=== PATIENT | male | born 1965 | race Caucasian/White ===

== ENCOUNTER 2024-01-24 20:46 | Inpatient (IN) | payer MEDICARE, SELFPAY ==
[2024-01-24] VITALS (9 sets, daily range): BP systolic 120–144; BP diastolic 81–106; PULSE 78–133; RESP 15–16; O2SAT 96–100
--- NOTE | ~2024-01-24 | XR_ITS ---
CHEST RADIOGRAPH, PA AND LATERAL CLINICAL HISTORY: chest pain SOB HX AFIB, ID . COMPARISON: None available TECHNIQUE: PA and lateral views of the chest. FINDINGS Right internal jugular tunneled hemodialysis catheter identified with its tip projecting over the sup erior vena cava. The remainder of the cardiomediastinal silhouette is enlarged, but otherwise unremarkable. Blunting of the bilateral costophrenic sulci, representing small bilateral pleural effusions. Increased interstitial markings are identified bilaterally, findings suggesting mild pulmonary vascul ar congestion. The lungs are otherwise clear. IMPRESSION: Mild pulmonary vascular congestion with small bilateral pleural effusions, as detailed above. Reviewed, dictated and finalized at location A. SERVICE ADVISOR IMPRESSION: Mild pulmonary vascular congestion with small bilateral pleural effusions, as d etailed above.
--- NOTE | 2024-01-24 20:53 | ECG_ITS ---
Test Date: 2024-01-24 20:57:42 Measurements Intervals [place] Rate: 127 P: -45 SD: 217 QRS: -81 QRSD: 124 T: 61 QT: 341 QTc: 497 Interpretive Statements ECTOPIC ATRIAL TACHYCARDIA WITH FIRST DEGREE AV BLOCK ATRIAL PREMATURE COMPLEX LEFT AXIS DEVIATION RIGHT BUNDLE BRANCH BLOCK INFERIOR INFARCT, AGE INDETERMINATE ANTEROLATERAL INFARCT, AGE INDETERMINATE BORDERLINE ST-T WAVE ABNORMALITY- HIGH LATERAL LEADS BASELINE ARTIFACT- I ABNORMAL ECG No previous ECG available for comparison Electronically Signed On 01-25-2024 05:25:59 COOLING ROOM ATTENDANT by Glenn Delgadillo D.O.
[2024-01-24 21:24] LABS: Basophils Percent Auto 0.4 % (0.2-1.2); Eosinophils Absolute Auto 0.1 K/mm3 (0-0.3); Eosinophils Percent Auto 1.1 % (0-4.4); Immature Granulocyte Absolute 0.07 K/mm3 (0.00-0.031); Immature Granulocyte Percent A 0.7 % (0-0.5); Lymphocytes Absolute Auto 0.56 K/mm3 (0.9-3.2); Lymphocytes Percent Auto 5.6 % (18.3-44.2); Mean Corpuscular Volume 90.1 fl (80-100); Mean Platelet Volume 9.2 fl (7.4-10.4); Monocytes Absolute Auto 0.7 K/mm3 (0.1-0.6); Neutrophils Absolute Auto 8.5 K/mm3 (1.3-6.7); Neutrophils Percent Auto 85.2 % (45.5-73.1); Platelet Count Result 228 k/mm3 (150-375); Red Blood Count 3.22 M/mm3 (4.6-6.20); Red Cell Distribution Width 15.5 % (11.5-14.5)
[2024-01-24] MEDS: METOPROLOL TARTRATE INJ 5 MG/5 ML VIAL IV PUSH (21:35)
[2024-01-24 21:36] LABS: Alanine Aminotransferase 11 U/L (6-50); Albumin Level 3.2 g/dL (3.5-5.1); Alkaline Phosphatase 94 U/L (38-126); Anion Gap 9 mmol/L (4-12); Aspartate Amino Transferase 24 U/L (17-59); Bilirubin,Total 0.3 mg/dL (0.2-1.3); Blood Urea Nitrogen 18 mg/dL (9-20); Calcium 8.3 mg/dL (8.4-10.2); Carbon Dioxide 29 mmol/L (22-30); Chloride 98 mmol/L (98-107); Estimated CRCL calculation 23 ml/min; Estimated Glomerular Filt Rate 15; Glucose 344 mg/dL (65-110); INR 1.3; Lipase 68 U/L (23-300); Potassium 3.9 mmol/L (3.4-5.0); Prothrombin Time 16.6 Seconds (11.1-14.7); Sodium 136 mmol/L (137-145)
[2024-01-24 21:37] LABS: Partial Thromboplastin Time 37.2 Seconds (22.3-36.8)
[2024-01-24 21:49] LABS: Troponin I 0.144 ng/mL (0.000-0.034)
[2024-01-24] MEDS: LORazepam INJ (*CRX) 2 MG/ML VIAL 1 MG IV PUSH (22:38)
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
[2024-01-24] MEDS: dilTIAZem HCl INJ 25 MG/5 ML VIAL 10 MG IV PUSH (23:50)
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
[2024-01-25] VITALS (19 sets, daily range): BP systolic 104–138; BP diastolic 60–92; PULSE 71–119; RESP 12–22; TEMP 36.4–36.8; O2SAT 94–100; BMI 31.8
--- NOTE | 2024-01-25 | ECHO_ITS ---
Patient Info Name: Jeancarlos Varghese Age: 59 years : 1965 Gender: Male Ht: 72 in Wt: 234 lbs BSA: 2.35 m2 HR: 119 bpm BP: 138 / 88 mmHg Heart Rhythm: Sinus Rhythm Technical Quality: Fair Exam Date: 01/25/2024 4:33 PM Exam Location: Echo Lab Patient Status: Inpatient Admit Date: 01/25/2024 Staff Ordering Physician: Phani Méndez MD ([facility]) Senior Backup Administrator: Marko Dior RDCS Attending Provider: Casey Turcios MD Exam Type: CA echo dop color flow w con Study Info Indications I21.4 - Non-ST elevation (NSTEMI) myocardial infarction Complete two-dimensional, color flow and Doppler transthoracic echocardiogram is performed with contrast to opacify the left ventricle and to improve the deliniation of the left ventricle endocardial borders. Contrast/Agitated Saline Contrast/Ag. Saline: Definity Amount: 2.00 ml Existing IV Access: Yes IV Access Condition: patent with no signs of infiltration Summary 1. Left ventricular chamber dimension is normal. 2. Left ventricular systolic function is mildly reduced, estimated at 45-50%. 3. There is mildly increased left ventricular wall thickness. 4. The left ventricular diastolic function is grade I diastolic dysfunction. 5. Right ventricular systolic function is normal. 6. There is moderate aortic valve calcification. 7. There is mild aortic valve stenosis. 8. There is mild mitral valve regurgitation. 9. There is mild tricuspid valve regurgitation. 10. Estimated pulmonary arterial systolic pressure is 37 mmHg. Left Ventricle Left ventricular chamber dimension is normal. Left ventricular systolic function is mildly reduced, estimated at 45-50%. There is mildly increased left ventricular wall thickness. The left ventricular diastolic function is grade I diastolic dysfunction. Right Ventricle Right ventricular chamber dimension is normal. Right ventricular systolic function is normal. Left Atria Left atrial chamber dimension is normal. Right Atria Right atrial chamber dimension is normal. Atrial Septum Intact interatrial septum visualized by color flow imaging. Aortic Valve The aortic valve is probable trileaflet. There is mild aortic valve stenosis. There is no aortic valve regurgitation. There is moderate aortic valve calcification. Pulmonic Valve The pulmonic valve is not well visualized. There is no pulmonic regurgitation. Mitral Valve There is mild mitral valve regurgitation. The mitral valve annulus is mildly calcified. Tricuspid Valve There is mild tricuspid valve regurgitation. Estimated pulmonary arterial systolic pressure is 37 mmHg. Pericardium/Pleural There is no pericardial effusion. Inferior Vena Cava Normal inferior vena cava with <50% collapse upon inspiration consistent with elevated right atrial pressure, 15 mmHg. Aorta The aortic root size at the sinus of Valsalva is normal. Left Ventricular Outflow Tract Name Value Normal LVOT 2D LVOT Diameter 2.00 cm LVOT Doppler LVOT Peak Gradient 1 mmHg LVOT Mean Gradient 1 mmHg LVOT VTI 11.26 cm LVOT VTI/AV VTI Ratio 0.56 LVOT Stroke Volume 35.21 ml LVOT CO 2.43 l/min LVOT CI 1.04 L/min/m2 Pulmonic Valve Name Value Normal PV Doppler PV Peak Gradient 2 mmHg Mitral Valve Name Value Normal MV Doppler MV Decel Hernando 574.22 cm/s2 MV PHT 0 s MV Area (PHT) 4.06 cm2 4.00-5.00 MV Diastolic Function MV E Peak Velocity 107.30 cm/s MV A Peak Velocity 56.10 cm/s MV E/A 1.91 MV Decel Time 0 s Tricuspid Valve Name Value Normal TV Regurgitation Doppler TR Peak Velocity 234.34 cm/s TR Peak Gradient 21 mmHg Estimated PAP/RSVP RA Pressure 15 mmHg <=5 PA Systolic Pressure 37 mmHg <36 RV Systolic Pressure 37 mmHg <36 Aorta Name Value Normal Ascending Aorta Ao Root Diameter (MM) 2.53 cm Ao Root Diam Index (MM) 1.08 cm/m2 Aortic Valve Name Value Normal AV Doppler AV Peak Velocity 113.70 cm/s AV Peak Gradient 5 mmHg AV Mean Gradient 3 mmHg AV VTI 19.97 cm AV Area (Cont Eq VTI) 1.76 cm2 >=3.00 AV Area (Cont Eq Foster) 1.68 cm2 AV Regurgitation 2D LVOT Area 3.13 cm2 Ventricles Name Value Normal LV Dimensions 2D/MM IVS Diastolic Thickness (2D) 0.89 cm 0.60-1.00 IVS Diastole Thickness (MM) 0.94 cm 0.60-1.00 LVID Diastole (2D) 5.75 cm 4.20-5.80 LVID Diastole (MM) 6.03 cm 4.20-5.80 LVIW Diastolic Thickness (2D) 1.09 cm 0.60-1.00 LVIW Diastolic Thickness (MM) 0.81 cm 0.60-1.00 LVID Systole (2D) 3.66 cm 2.50-4.00 LVID Systole (MM) 4.35 cm 2.50-4.00 LVOT Diameter 2.00 cm LV Mass (2D Cubed) 227.00 g 88.00-224.00 LV Mass Index (2D Cubed) 0.01 g/cm2 0.00-0.01 Relative Wall Thickness (2D) 0.38 LV Mass (MM Cubed) 210.33 g 88.00-224.00 LV Mass Index (MM Cubed) 0.01 g/cm2 0.00-0.01 Relative Wall Thickness (MM) 0.27 LV Fractional Shortening/Ejection Fraction 2D/MM LV Fractional Shortening (2D) 36 % 25-43 LV Fractional Shortening (MM) 28 % 25-43 LV EF (MM Teicholz) 53 % 52-72 LV EF (2D Teicholz) 65 % 52-72 LV Diastolic Volume (4C MOD) 140.79 ml LV EF (4C MOD) 51 % LV Diastolic Volume (2C MOD) 117.38 ml LV EF (2C MOD) 43 % LV Diastolic Volume (BP MOD) 130.66 ml 62.00-150.00 LV Diastolic Volume Index (BP MOD) 0.06 l/m2 0.03-0.07 LV Systolic Volume (BP MOD) 68.29 ml 21.00-61.00 LV Systolic Volume Index (BP MOD) 0.03 l/m2 0.01-0.03 LV EF (BP MOD) 48 % 52-72 LV Diastolic Length (4C) 8.69 cm LV Systolic Length (4C) 8.15 cm LV Stroke Volume (4C MOD) 72.05 ml Atria Name Value Normal LA Dimensions LA Dimension (MM) 5.58 cm 3.00-4.10 LA Volume (4C A-L) 65.60 ml LA Volume (BP A-L) 60.00 ml RA Dimensions RA Area (4C) 15.40 cm2 <=18.00 Report Signatures
--- NOTE | 2024-01-25 00:08 | ED.CHESTPAIN ---
HPI - Chest Pain General Chief Complaint: Chest Pain Stated Complaint: cp/sob Time Seen by Provider: 01/24/24 20:59 Source: patient Mode of arrival: EMS Limitations: no limitations History of Present Illness HPI narrative: 59-year-old with a history of CAD, diabetes, AFib on Eliquis, ESRD on hemodialysis Monday, status post foot amputation with brought in from custodial with similar symptoms chest pain and shortness of breath. Patient states that has been sitting in his wheelchair all morning of analysis for about 4 moves mostly to put on med did patient states that his colon was nursed normal he was answering any got agitated started having chest pain and shortness of breath. Patient states that he had cardiac stents placed in [facility]. He is presently undergoing rehab at the nursing patient states that he has taken all his medications and had his dialysis earlier this morning. MD complaint: chest pain Pertinent past history: coronary artery disease Onset (ago): hour(s) (1) Timing of current episode: constant Onset: during rest Pain location: substernal Pain radiation: none Severity: moderate Quality: aching Relieving factors: nothing Exacerbating factors: nothing Risk Factors Coronary artery disease risk factors: diabetes, hyperlipidemia and hypertension Related Data Allergies Allergy/AdvReac Type Severity Reaction Status Date / Time No Known Allergies Allergy Verified 01/24/24 22:07 Review of Systems Review of Systems: All systems reviewed & are unremarkable except as noted in HPI and below Constitutional: Constitutional: Reports no additional constitutional complaints Eyes: Eyes: Reports no additional eye complaints ENT: Reports system reviewed and no additional complaints, except as documented Cardiovascular: Cardiovascular: Reports as per HPI Gastrointestinal: Gastrointestinal: Reports no additional gastrointestinal complaints Musculoskeletal: Musculoskeletal: Reports no additional musculoskeletal complaints Neurologic: Reports system reviewed and no additional complaints, except as documented Exam Narrative: GENERAL: Well-appearing, well-nourished, and in no acute distress. HEAD: Normocephalic, atraumatic. EYES: PERRLA and EOMI. ENT: Mucous membranes moist. NECK: Supple. CHEST: Clear to auscultation. No respiratory distress. HEART: Tachycardic ABDOMEN: Soft, nontender, nondistended, normal active bowel sounds. EXTREMITIES: Normal range of motion. No edema. Status post amputation of his left foot SKIN: Warm, dry, no rash. NEURO: No focal deficits. Alert and oriented x3. PSYCH: Normal mood and affect. Course Course Emergency Course: Patient seems to be quite anxious upon arrival. His EKG shows AFib with RVR I did give him IV Lopressor 5 mg which brought his heart rate down to 90s. I did explain to him about his lab work, chest x-ray an EKG findings. i discussed with Dr. Tam yates .the pt. Reevaluation(s) Time: 00:14 Reevaluation #2: feeling much better , resting HR is 77 Vital Signs Vital signs: Vital Signs Pulse Rate 133 H 01/24/24 20:47 Respiratory Rate 16 01/24/24 20:47 Pulse Oximetry 96 01/24/24 20:47 Oxygen Delivery Room Air 01/24/24 20:47 Pulse Rate 75 01/25/24 00:16 Respiratory Rate 13 01/25/24 00:16 Blood Pressure 115/77 01/25/24 00:16 Pulse Oximetry 100 01/25/24 00:16 Oxygen Delivery Room Air 01/24/24 21:16 MDM - Chest Pain Differential Diagnosis Differential diagnosis: Likely stable angina, unstable angina pectoris and chest pain Medical Records Data Attestation: I reviewed the patient's medical records. Lab Data Attestation: I reviewed the patient's lab results. 01/24/24 21:17 01/24/24 21:17 Labs: Lab Results 01/24/24 01/25/24 Range/Units 21:17 00:47 WBC 10.0 (4.5-10.0) K/mm3 RBC 3.22 L (4.6-6.20) M/mm3 Hgb 9.0 L (14.0-18.0) g/dL Hct 29.0 L (42.0-52.0) % MCV 90.1 (80-100) fl MCH 28.0 (26-34) pg MCHC 31.0 L (32-36) g/dl RDW 15.5 H (11.5-14.5) % Plt Count 228 (150-375) k/mm3 MPV 9.2 (7.4-10.4) fl Immature Gran % (Auto) 0.7 H (0-0.5) % Neut % (Auto) 85.2 H (45.5-73.1) % Lymph % (Auto) 5.6 L (18.3-44.2) % Sanders % (Auto) 7.0 (2.6-8.5) % Eos % (Auto) 1.1 (0-4.4) % Baso % (Auto) 0.4 (0.2-1.2) % Lymph # (Auto) 0.56 L (0.9-3.2) K/mm3 Sanders # (Auto) 0.7 H (0.1-0.6) K/mm3 Eos # (Auto) 0.1 (0-0.3) K/mm3 Baso # (Auto) 0.0 (0.0-0.1) K/mm3 Abs Immat Gran (auto) 0.07 H (0.00-0.031) K/mm3 Absolute Neuts (auto) 8.5 H (1.3-6.7) K/mm3 Absolute Nucleated RBC 0.000 (0.0-0.012) K/mm3 Nucleated RBC % 0.0 (0.0-0.2) % PT 16.6 H (11.1-14.7) Seconds INR 1.3 APTT 37.2 H (22.3-36.8) Seconds Sodium 136 L (137-145) mmol/L Potassium 3.9 (3.4-5.0) mmol/L Chloride 98 (98-107) mmol/L Carbon Dioxide 29 (22-30) mmol/L Anion Gap 9 (4-12) mmol/L BUN 18 (9-20) mg/dL Creatinine 4.10 H (0.7-1.3) mg/dL Estim Creat Clear Calc 23 ml/min Estimated GFR 15 L (59 - ) Glucose 344 H (65-110) mg/dL Calcium 8.3 L (8.4-10.2) mg/dL Total Bilirubin 0.3 (0.2-1.3) mg/dL AST 24 (17-59) U/L ALT 11 (6-50) U/L Alkaline Phosphatase 94 (38-126) U/L Troponin I 0.144 H* Pending (0.000-0.034) ng/mL Total Protein 7.0 (6.3-8.2) g/dL Albumin 3.2 L (3.5-5.1) g/dL Lipase 68 (23-300) U/L ECG Data EKG #2: ECG completion date: 01/25/24 ECG completion time: 00:47 EKG Interpretation: normal rate (77), sinus rhythm, no ectopy, non-specific ST changes, RBBB and other (First-degree AV block) EKG #1: ECG completion date: 01/24/24 ECG completion time: 20:57 EKG Interpretation: normal rate, tachycardia (127), atrial fibrillation, non-specific ST changes, RBBB, other (Q-waves in the inferior leads) and no acute changes Discharge Plan Discharge Clinical Impression: Chest pain, Atrial fibrillation with RVR Patient Disposition: Still a Patient Condition: Stable Follow-up/Referrals: PHYSICIAN NOT ON STAFF,NONSTAFF [Primary Care Provider] -
--- NOTE | 2024-01-25 00:39 | ECG_ITS ---
Test Date: 2024-01-25 00:47:11 Measurements Intervals [place] Rate: 77 P: 17 ID: 210 QRS: -68 QRSD: 125 T: 26 QT: 436 QTc: 495 Interpretive Statements SINUS RHYTHM WITH FIRST DEGREE AV BLOCK WITH FREQUENT SUPRAVENTRICULAR PREMATURE COMPLEXES LEFT AXIS DEVIATION INTERMITTENT RIGHT BUNDLE BRANCH BLOCK INFERIOR INFARCT, AGE INDETERMINATE CONSIDER ANTEREROLATERAL INFARCT, AGE INDETERMINATE BORDERLINE ST-T WAVE ABNORMALITY- HIGH LATERAL LEADS ABNORMAL ECG Compared to ECG 01/24/2024 20:57:42 ATRIAL TACHYCARDIA NO LONGER PRESENT INTERMITTENT RIGHT BUNDLE BRANCH BLOCK NOW PRESENT Electronically Signed On 01-25-2024 05:32:09 FISHING TACKLE REPAIRER by Glenn Delgadillo D.O.
[2024-01-25 02:36] LABS: Glucose Point of Care 340 mg/dl (65-105)
--- NOTE | 2024-01-25 04:14 | ADMGEN ---
This patient, Jeancarlos Varghese, was admitted to IMU Room 202-. Patient/family oriented to hospital policies and general routines including ID bracelet, bed and alarms, visiting hours, pain management, procedures, bathroom and other care routines, personal items, smoking policy, room service/diet, and visiting hours. Information on how to activate the Rapid Response Team has been discussed. Patient/Family are encouraged to report perceived risks to care and to ask questions if they do not understand what they are told or what they should do.
--- NOTE | 2024-01-25 04:57 | P.HP_ITS ---
H&P: HPI History of Present Illness Date/Time: 01/25/24 04:57 Chief Complaint: Chest pain Narrative: This is a 59-year-old male with past medical history significant for type 2 diabetes mellitus, atrial fibrillation, left foot amputation, chronic kidney disease currently on hemodialysis. Patient presents from local half-way due to chest pain at the time of my visit patient denies any pain. Patient recently discharged from [facility] after undergoing amputation he was started on dialysis while on that admission. Preliminary workup was significant for CBCs hemoglobin is 9 hematocrit 29, creatinine is 4, BUN is 18 troponins x2 0.144 and 1.3. In emergency room patient had atrial fibrillation with rapid ventricular response. Patient has been admitted for further evaluation management and treatment. CHEST RADIOGRAPH, PA AND LATERAL CLINICAL HISTORY: chest pain SOB HX AFIB, [place] . COMPARISON: None available TECHNIQUE: PA and lateral views of the chest. FINDINGS Right internal jugular tunneled hemodialysis catheter identified with its tip projecting over the superior vena cava. The remainder of the cardiomediastinal silhouette is enlarged, but otherwise unremarkable. Blunting of the bilateral costophrenic sulci, representing small bilateral pleural effusions. Increased interstitial markings are identified bilaterally, findings suggesting mild pulmonary vascular congestion. The lungs are otherwise clear. IMPRESSION: Mild pulmonary vascular congestion with small bilateral pleural effusions, as detailed above. Review of Systems Review of Systems: Chest pain, status post left foot amputation Meds Home Medications and Allergies Home Medications Medication Instructions Recorded Confirmed Type acetaminophen 325 mg chewable 325 mg PO Q4H PRN Pain (Scale 01/25/24 01/25/24 History tablet Score 1-3) amlodipine 5 mg tablet 5 mg PO DAILY 01/25/24 01/25/24 History apixaban 5 mg tablet (Eliquis) 5 mg PO BID 01/25/24 01/25/24 History ascorbate calcium (vitamin C) 500 500 mg PO HS 01/25/24 01/25/24 History mg tablet bisacodyl 10 mg rectal suppository 10 mg RECTAL DAILY PRN Constipation 01/25/24 01/25/24 History bumetanide 2 mg tablet 2 mg PO BID 01/25/24 01/25/24 History ceftriaxone 2 gram intravenous 2 g IV DAILY 01/25/24 01/25/24 History solution dapagliflozin propanediol 10 mg 10 mg PO DAILY 01/25/24 01/25/24 History tablet (Farxiga) ferrous sulfate 325 mg (65 mg 325 mg PO DAILY 01/25/24 01/25/24 History iron) capsule,extended release glipizide 10 mg tablet 10 mg PO BID 01/25/24 01/25/24 History insulin degludec 100 unit/mL (3 20 unit subcut DAILY 01/25/24 01/25/24 History mL) subcutaneous pen (Tresiba FlexTouch U-100 insulin) metformin 500 mg tablet 500 mg PO BID 01/25/24 01/25/24 History metoprolol tartrate 100 mg tablet 100 mg PO DAILY 01/25/24 01/25/24 History olanzapine 5 mg tablet 5 mg PO Q6H PRN Anxiety 01/25/24 01/25/24 History pantoprazole 40 mg tablet,delayed 40 mg PO QAM 01/25/24 01/25/24 History release polyethylene glycol 3350 17 gram 17 g PO DAILY PRN Constipation 01/25/24 01/25/24 History oral powder packet (Miralax) rosuvastatin 40 mg tablet 40 mg PO DAILY 01/25/24 01/25/24 History sacubitril 24 mg-valsartan 26 mg 1 tablet PO BID 01/25/24 01/25/24 History tablet (Entresto) sevelamer carbonate 800 mg tablet 1,600 mg PO TIDWM 01/25/24 01/25/24 History sodium polystyrene sulfonate 15 60 ml PO DAILY 01/25/24 01/25/24 History gram-sorbitol 20 gram/60 mL oral susp (SPS (with sorbitol)) tamsulosin 0.4 mg capsule 0.4 mg PO HS 01/25/24 01/25/24 History Allergies Allergy/AdvReac Type Severity Reaction Status Date / Time No Known Allergies Allergy Verified 01/24/24 22:07 Vital Signs Vital Signs - 24 hr 01/24/24 20:47 01/24/24 21:16 01/24/24 21:35 Temperature Pulse Rate 133 H 128 H Respiratory Rate 16 Blood Pressure Pulse Oximetry 96 96 Oxygen Delivery Room Air Room Air 01/24/24 22:53 01/24/24 21:30 01/24/24 23:16 Temperature Pulse Rate 121 H 127 H 85 Respiratory Rate 16 15 15 Blood Pressure 134/97 H 144/106 H Pulse Oximetry 97 97 Oxygen Delivery 01/24/24 23:17 01/24/24 23:31 01/24/24 23:54 Temperature Pulse Rate 83 82 78 Respiratory Rate 15 16 16 Blood Pressure 120/98 H 133/81 Pulse Oximetry 100 98 Oxygen Delivery 01/25/24 00:00 01/25/24 00:15 01/25/24 00:16 Temperature Pulse Rate 76 75 75 Respiratory Rate 15 12 13 Blood Pressure 115/77 Pulse Oximetry 100 100 100 Oxygen Delivery 01/25/24 03:58 Temperature 98.2 F Pulse Rate 75 Respiratory Rate 13 Blood Pressure 104/60 Pulse Oximetry 98 Oxygen Delivery Exam Narrative: Laying in a stretcher Const: General: comfortable, no acute distress, well developed, alert, awake and average body habitus Nutritional Appearance: average body habitus Orientation/consciousness: patient oriented x3 HENMT: Head: normal to inspection, normocephalic and atraumatic Ears: hearing grossly normal bilaterally Face/Nose/Sinus: normal facial exam Face and sinus: normal facial exam Eyes: General: appearance normal, both eyes and all related structures Pupils: Equal, round and reactive pupils present EOM: EOMs intact bilaterally Neck: Neck: full ROM, no lymphadenopathy and no JVD Thyroid: thyroid normal Lymphatic: no lymphadenopathy noted Chest: Other: Right subclavian dialysis catheter Resp: Effort & Inspection: normal respiratory effort and able to speak in complete sentences Auscultation: clear to auscultation bilaterally Cardio: Jugular venous distension: no JVD Rate: regular rate Rhythm: regular rhythm Heart sounds: S1 normal heart sound present and S2 normal heart sound present GI: GI Palp: Yes Soft to palpation and Yes No hepatosplenomegaly present : General: Yes deferred Skin: Rashes: no rashes Wounds: amputation site left foot without odor Neuro: General: patient oriented x3 and CN's II-XI intact bilaterally Cranial nerves: Yes CN's II-XII intact bilaterally and Yes Equal, round and reactive pupils present Cognition (Neuro): normal cognition Speech: normal speech Gait exam (Neuro): Unable to assess gait Motor exam (neuro): 5/5 motor strength present throughout Extrem: General: normal to inspection, full ROM, no joint enlargement and no pedal edema Left lower extremity: foot Details: other (Amputation) H&P: Results Labs Labs: Short CBC 01/24/24 Range/Units 21:17 WBC 10.0 (4.5-10.0) K/mm3 Hgb 9.0 L (14.0-18.0) g/dL Hct 29.0 L (42.0-52.0) % Plt Count 228 (150-375) k/mm3 BMP 01/24/24 21:17 Sodium 136 L Potassium 3.9 Chloride 98 Carbon Dioxide 29 BUN 18 Creatinine 4.10 H Glucose 344 H Calcium 8.3 L Cardiac Enzymes 01/24/24 01/25/24 Range/Units 21:17 00:47 Troponin I 0.144 H* 1.300 H* D (0.000-0.034) ng/mL Liver Function 01/24/24 Range/Units 21:17 Total Bilirubin 0.3 (0.2-1.3) mg/dL AST 24 (17-59) U/L ALT 11 (6-50) U/L Alkaline Phosphatase 94 (38-126) U/L Albumin 3.2 L (3.5-5.1) g/dL Assessment and Plan Assessment and plan (1) Chest pain: Qualifiers: Chest pain type: unspecified Qualified Code(s): R07.9 - Chest pain, unspecified Code(s): R07.9 - Chest pain, unspecified Status: Acute Assessment and Plan: Admit to IMU EKG with atrial fibrillation Cardiology consult Elevated troponins (2) Atrial fibrillation with RVR: Code(s): I48.91 - Unspecified atrial fibrillation Status: Acute Assessment and Plan: Rate controlled and anticoagulated (3) Chronic kidney disease (CKD) stage G5/A1, glomerular filtration rate (GFR) less than or equal to 15 mL/min/1.73 square meter and albuminuria creatinine ratio less than 30 mg/g: Code(s): N18.5 - Chronic kidney disease, stage 5 Status: Acute Assessment and Plan: Currently on dialysis Nephrology consult (4) Amputation of left foot: Code(s): S98.912A - Complete traumatic amputation of left foot, level unspecified, initial encounter Status: Acute Assessment and Plan: Local care (5) Insulin dependent diabetes mellitus: Status: Acute Assessment and Plan: Continue insulin Holding metformin Holding glipizide (6) Peripheral autonomic neuropathy due to diabetes mellitus: Code(s): E11.43 - Type 2 diabetes mellitus with diabetic autonomic (poly)neuropathy Status: Acute Assessment and Plan: Status post left foot amputation (7) Coronary artery disease: Code(s): I25.10 - Atherosclerotic heart disease of hoh coronary artery without angina pectoris Status: Acute Assessment and Plan: Continue [facility] Advance Care Plan I have confirmed that the patient's Advanced Care Plan is present, code status is documented, or surrogate decision maker is listed in patient medical record.: Yes Medication Reconciliation I have utilized all available resources to obtain, update and review the patients current medications (includes all prescriptions, OTC, herbals, cannabis, and nutritional supplements).: Yes
[2024-01-25 07:23] LABS: Basophils Percent Auto 0.4 % (0.2-1.2); Eosinophils Absolute Auto 0.2 K/mm3 (0-0.3); Hemoglobin 7.7 g/dL (14.0-18.0); Immature Granulocyte Absolute 0.04 K/mm3 (0.00-0.031); Immature Granulocyte Percent A 0.5 % (0-0.5); Lymphocytes Percent Auto 8.3 % (18.3-44.2); Mean Corpuscular HGB Conc 30.8 g/dl (32-36); Mean Corpuscular Hemoglobin 28.3 pg (26-34); Mean Corpuscular Volume 91.9 fl (80-100); Mean Platelet Volume 9.4 fl (7.4-10.4); Monocytes Absolute Auto 0.7 K/mm3 (0.1-0.6); Monocytes Percent Auto 8.4 % (2.6-8.5); Neutrophils Absolute Auto 6.8 K/mm3 (1.3-6.7); Neutrophils Percent Auto 80.4 % (45.5-73.1); Platelet Count Result 191 k/mm3 (150-375); Red Blood Count 2.72 M/mm3 (4.6-6.20); Red Cell Distribution Width 15.8 % (11.5-14.5); White Blood Count 8.5 K/mm3 (4.5-10.0)
[2024-01-25 07:52] LABS: Glucose Point of Care 246 mg/dl (65-105)
[2024-01-25 08:05] LABS: INR 1.4; Prothrombin Time 17.8 Seconds (11.1-14.7)
[2024-01-25 08:06] LABS: Partial Thromboplastin Time 42.5 Seconds (22.3-36.8)
[2024-01-25] MEDS: HEPARIN SOD/D5W 100 UNITS/ML 25,000 UNITS/250 ML BAG 10 UNITS IV CONT (08:14)
[2024-01-25] MEDS: BUMETANIDE 1 MG TABLET 2 MG PO ×2 (08:16→17:33)
[2024-01-25] MEDS: SEVELAMER CARBONATE 800 MG TABLET 1600 MG PO ×3 (08:16→17:33)
[2024-01-25] MEDS: METOPROLOL TARTRATE 50 MG TAB 100 MG PO ×2 (08:16→20:19)
[2024-01-25] MEDS: SACUBITRIL/VALSARTAN 24-26 MG TABLET 1 TAB PO ×2 (08:16→20:19)
[2024-01-25] MEDS: EMPAGLIFLOZIN 25 MG TABLET PO (08:16)
[2024-01-25] MEDS: amLODIPine BESYLATE 5 MG TABLET PO (08:16)
[2024-01-25] MEDS: ROSUVASTATIN 20 MG TABLET 40 MG PO (08:16)
[2024-01-25] MEDS: FERROUS SULFATE 325 MG TABLET DR PO (08:16)
[2024-01-25] MEDS: PANTOPRAZOLE 40 MG TABLET PO (08:16)
[2024-01-25] MEDS: INSULIN GLARGINE (*BKC) 100 UNITS/ML 20 UNITS SUB-Q (08:28)
[2024-01-25] MEDS: NS IVPB (08:36)
[2024-01-25] MEDS: CEFTRIAXONE IVPB (08:36)
[2024-01-25] MEDS: INSULIN ASPART (*BKC) 100 UNITS/ML SUB-Q ×2 (08:47→12:05)
--- NOTE | 2024-01-25 12:33 | PM.CNCAR ---
Assessment and Plan Assessment and plan (1) NSTEMI (non-ST elevated myocardial infarction): Code(s): I21.4 - Non-ST elevation (NSTEMI) myocardial infarction Status: Acute (2) Atrial fibrillation with RVR: Code(s): I48.91 - Unspecified atrial fibrillation Status: Acute (3) Peripheral arterial disease: Code(s): I73.9 - Peripheral vascular disease, unspecified Status: Acute (4) Peripheral arterial disease with history of revascularization: Code(s): I73.9 - Peripheral vascular disease, unspecified; Z98.890 - Other specified postprocedural states Status: Acute Plan 59-year-old man with ESRD on hemodialysis, PAD status post left foot amputation, diabetes mellitus type 2 and paroxysmal atrial fibrillation on Eliquis presented from senior living for chest pain Non ST elevation [place] -patient should have ischemic eval with the left heart catheterization; however he is unsure if he took Eliquis last night -since his chest pain has significantly reduced and tolerable on medical management, will schedule left heart catheterization for 24 hours to 48 hours after his last known consumption of Eliquis -in the meantime, will continue rosuvastatin 40 mg every evening and add aspirin 81 mg to his regimen -would also switch his Lopressor 100 mg daily to b.i.d. -recommend weaning him off diltiazem drip -continue heparin drip and give sublingual nitro if needed -obtain an echocardiogram PAD status post left foot amputation -reportedly had balloon angioplasty of left leg vessels -he will need surveillance SUSANA and ultrasound Doppler at some point this month Paroxysmal atrial fibrillation -continue holding Eliquis -heparin drip -Lopressor 100 mg b.i.d. -wean off diltiazem Hypertension -blood pressure at goal of less than 140 -continue amlodipine 5 mg p.o. daily History of Present Illness History of Present Illness Consult date/time: 01/25/24 12:33 Reason For Visit: Chest pain, Afib RVR Narrative: 59-year-old man with ESRD on hemodialysis, P 80 status post left foot amputation, diabetes mellitus type 2 and paroxysmal atrial fibrillation on Eliquis presented from senior living for chest pain. He is initially at the senior living stay after his left foot amputation and was supposed to complete his rehab therapy there. Yesterday he started having chest pain at rest and the fell as of of 400 lb person was sitting on his left chest. He denies any loss of consciousness or shortness of breath. He has not been very physically active given his recent left foot amputation however he has been working with physical therapy and trying to learn how to utilize is wheelchair and did not experience any chest pain with this level of exertion. 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 Review of Systems Review of Systems: All systems reviewed & are unremarkable except as noted in HPI and below PMFSH Social History Social History Smokeless tobacco user: chewing tobacco Alcohol intake: never Substance use: never Do You Feel Safe in your Home?: No Lack of Transportation: No Lack of Food: Never True Current Housing: I Have Housing Concerned About Future Housing: No Difficulty Paying Gas/Electric Bills: No Difficulty Paying for Meds: No Currently Unemployed: No Education: High School Diploma/GED Difficulty w/ Childcare or Family Care: No Spiritual care concerns: No Meds Home Medications and Allergies Home Medications Medication Instructions Recorded Confirmed Type acetaminophen 325 mg chewable 325 mg PO Q4H PRN Pain (Scale 01/25/24 01/25/24 History tablet Score 1-3) amlodipine 5 mg tablet 5 mg PO DAILY 01/25/24 01/25/24 History apixaban 5 mg tablet (Eliquis) 5 mg PO BID 01/25/24 01/25/24 History ascorbate calcium (vitamin C) 500 500 mg PO HS 01/25/24 01/25/24 History mg tablet bisacodyl 10 mg rectal suppository 10 mg RECTAL DAILY PRN Constipation 01/25/24 01/25/24 History bumetanide 2 mg tablet 2 mg PO BID 01/25/24 01/25/24 History ceftriaxone 2 gram intravenous 2 g IV DAILY 01/25/24 01/25/24 History solution dapagliflozin propanediol 10 mg 10 mg PO DAILY 01/25/24 01/25/24 History tablet (Farxiga) ferrous sulfate 325 mg (65 mg 325 mg PO DAILY 01/25/24 01/25/24 History iron) capsule,extended release glipizide 10 mg tablet 10 mg PO BID 01/25/24 01/25/24 History insulin degludec 100 unit/mL (3 20 unit subcut DAILY 01/25/24 01/25/24 History mL) subcutaneous pen (Tresiba FlexTouch U-100 insulin) metformin 500 mg tablet 500 mg PO BID 01/25/24 01/25/24 History metoprolol tartrate 100 mg tablet 100 mg PO DAILY 01/25/24 01/25/24 History olanzapine 5 mg tablet 5 mg PO Q6H PRN Anxiety 01/25/24 01/25/24 History pantoprazole 40 mg tablet,delayed 40 mg PO QAM 01/25/24 01/25/24 History release polyethylene glycol 3350 17 gram 17 g PO DAILY PRN Constipation 01/25/24 01/25/24 History oral powder packet (Miralax) rosuvastatin 40 mg tablet 40 mg PO DAILY 01/25/24 01/25/24 History sacubitril 24 mg-valsartan 26 mg 1 tablet PO BID 01/25/24 01/25/24 History tablet (Entresto) sevelamer carbonate 800 mg tablet 1,600 mg PO TIDWM 01/25/24 01/25/24 History sodium polystyrene sulfonate 15 60 ml PO DAILY 01/25/24 01/25/24 History gram-sorbitol 20 gram/60 mL oral susp (SPS (with sorbitol)) tamsulosin 0.4 mg capsule 0.4 mg PO HS 01/25/24 01/25/24 History Allergies Allergy/AdvReac Type Severity Reaction Status Date / Time No Known Allergies Allergy Verified 01/24/24 22:07 Vital Signs Vital Signs - 24 hr 01/24/24 20:47 01/24/24 21:16 01/24/24 21:35 Temperature Pulse Rate 133 H 128 H Respiratory Rate 16 Blood Pressure Pulse Oximetry 96 96 Oxygen Delivery Room Air Room Air Oxygen Flow Rate 01/24/24 22:53 01/24/24 21:30 01/24/24 23:16 Temperature Pulse Rate 121 H 127 H 85 Respiratory Rate 16 15 15 Blood Pressure 134/97 H 144/106 H Pulse Oximetry 97 97 Oxygen Delivery Oxygen Flow Rate 01/24/24 23:17 01/24/24 23:31 01/24/24 23:54 Temperature Pulse Rate 83 82 78 Respiratory Rate 15 16 16 Blood Pressure 120/98 H 133/81 Pulse Oximetry 100 98 Oxygen Delivery Oxygen Flow Rate 01/25/24 00:00 01/25/24 00:15 01/25/24 00:16 Temperature Pulse Rate 76 75 75 Respiratory Rate 15 12 13 Blood Pressure 115/77 Pulse Oximetry 100 100 100 Oxygen Delivery Oxygen Flow Rate 01/25/24 04:00 01/25/24 04:00 01/25/24 05:43 Temperature Pulse Rate 113 H 78 Respiratory Rate Blood Pressure Pulse Oximetry 100 Oxygen Delivery Nasal Cannula Oxygen Flow Rate 2 01/25/24 03:58 01/25/24 08:00 01/25/24 08:00 Temperature 36.8 C 36.6 C Pulse Rate 75 98 98 Respiratory Rate 13 18 18 Blood Pressure 104/60 127/80 Pulse Oximetry 98 98 98 Oxygen Delivery Room Air Oxygen Flow Rate 01/25/24 08:00 01/25/24 10:00 01/25/24 12:00 Temperature 36.7 C Pulse Rate 81 99 119 H Respiratory Rate 20 Blood Pressure 138/88 Pulse Oximetry 94 Oxygen Delivery Oxygen Flow Rate Exam Const: General: comfortable HENMT: Mouth: Yes moist mucous membranes Eyes: EOM: EOMs intact bilaterally Neck: Neck: no JVD Resp: Effort & Inspection: normal respiratory effort Auscultation: clear to auscultation bilaterally GI: GI Palp: Yes Soft to palpation Neuro: Speech: normal speech Extrem: General: normal to inspection Other: Hemodialysis access port along right shoulder Results Labs and Meds 01/25/24 07:11 01/24/24 21:17 Lab results: Cardiac Enzymes 01/24/24 01/25/24 01/25/24 Range/Units 21:17 00:47 04:20 AST 24 (17-59) U/L Troponin I 0.144 H* 1.300 H* D 1.690 H* D (0.000-0.034) ng/mL Coagulation 01/24/24 01/25/24 Range/Units 21:17 07:11 PT 16.6 H 17.8 H (11.1-14.7) Seconds APTT 37.2 H 42.5 H (22.3-36.8) Seconds CBC 01/24/24 01/25/24 Range/Units 21:17 07:11 WBC 10.0 8.5 (4.5-10.0) K/mm3 RBC 3.22 L 2.72 L (4.6-6.20) M/mm3 Hgb 9.0 L 7.7 L (14.0-18.0) g/dL Hct 29.0 L 25.0 L (42.0-52.0) % Plt Count 228 191 (150-375) k/mm3 Lymph # (Auto) 0.56 L 0.70 L (0.9-3.2) K/mm3 [place] # (Auto) 0.7 H 0.7 H (0.1-0.6) K/mm3 Eos # (Auto) 0.1 0.2 (0-0.3) K/mm3 Baso # (Auto) 0.0 0.0 (0.0-0.1) K/mm3 Comprehensive Metabolic Panel 01/24/24 Range/Units 21:17 Sodium 136 L (137-145) mmol/L Potassium 3.9 (3.4-5.0) mmol/L Chloride 98 (98-107) mmol/L Carbon Dioxide 29 (22-30) mmol/L BUN 18 (9-20) mg/dL Creatinine 4.10 H (0.7-1.3) mg/dL Glucose 344 H (65-110) mg/dL Calcium 8.3 L (8.4-10.2) mg/dL AST 24 (17-59) U/L ALT 11 (6-50) U/L Alkaline Phosphatase 94 (38-126) U/L Total Protein 7.0 (6.3-8.2) g/dL Albumin 3.2 L (3.5-5.1) g/dL Intake and Output 01/24/24 01/25/24 01/25/24 23:59 07:59 15:59 Intake Total 240 Balance 240 Intake: Oral 240 Other: # Unmeasured Voids 1 # Incontinent Voids 1 Patient Weight 01/25/24 23:59 Weight 106.3 kg
--- NOTE | 2024-01-25 13:01 | PM.CNNEP ---
History of Present Illness Reason for Consult Consult date: 01/25/24 Reason for consult: acute renal failure (on chronic kidney disease requiring OUTSOLE PARAFFINER/dialysis) Chief Complaint Chief complaint: Chest pain, Afib RVR Review of Systems Review of Systems: As per HPI. [facility] Social History Social History Smokeless tobacco user: chewing tobacco Alcohol intake: never Substance use: never Do You Feel Safe in your Home?: No Lack of Transportation: No Lack of Food: Never True Current Housing: I Have Housing Concerned About Future Housing: No Difficulty Paying Gas/Electric Bills: No Difficulty Paying for Meds: No Currently Unemployed: No Education: High School Diploma/GED Difficulty w/ Childcare or Family Care: No Spiritual care concerns: No Meds Home Medications and Allergies Home Medications Medication Instructions Recorded Confirmed Type acetaminophen 325 mg chewable 325 mg PO Q4H PRN Pain (Scale 01/25/24 01/25/24 History tablet Score 1-3) amlodipine 5 mg tablet 5 mg PO DAILY 01/25/24 01/25/24 History apixaban 5 mg tablet (Eliquis) 5 mg PO BID 01/25/24 01/25/24 History ascorbate calcium (vitamin C) 500 500 mg PO HS 01/25/24 01/25/24 History mg tablet bisacodyl 10 mg rectal suppository 10 mg RECTAL DAILY PRN Constipation 01/25/24 01/25/24 History bumetanide 2 mg tablet 2 mg PO BID 01/25/24 01/25/24 History ceftriaxone 2 gram intravenous 2 g IV DAILY 01/25/24 01/25/24 History solution dapagliflozin propanediol 10 mg 10 mg PO DAILY 01/25/24 01/25/24 History tablet (Farxiga) ferrous sulfate 325 mg (65 mg 325 mg PO DAILY 01/25/24 01/25/24 History iron) capsule,extended release glipizide 10 mg tablet 10 mg PO BID 01/25/24 01/25/24 History insulin degludec 100 unit/mL (3 20 unit subcut DAILY 01/25/24 01/25/24 History mL) subcutaneous pen (Tresiba FlexTouch U-100 insulin) metformin 500 mg tablet 500 mg PO BID 01/25/24 01/25/24 History metoprolol tartrate 100 mg tablet 100 mg PO DAILY 01/25/24 01/25/24 History olanzapine 5 mg tablet 5 mg PO Q6H PRN Anxiety 01/25/24 01/25/24 History pantoprazole 40 mg tablet,delayed 40 mg PO QAM 01/25/24 01/25/24 History release polyethylene glycol 3350 17 gram 17 g PO DAILY PRN Constipation 01/25/24 01/25/24 History oral powder packet (Miralax) rosuvastatin 40 mg tablet 40 mg PO DAILY 01/25/24 01/25/24 History sacubitril 24 mg-valsartan 26 mg 1 tablet PO BID 01/25/24 01/25/24 History tablet (Entresto) sevelamer carbonate 800 mg tablet 1,600 mg PO TIDWM 01/25/24 01/25/24 History sodium polystyrene sulfonate 15 60 ml PO DAILY 01/25/24 01/25/24 History gram-sorbitol 20 gram/60 mL oral susp (SPS (with sorbitol)) tamsulosin 0.4 mg capsule 0.4 mg PO HS 01/25/24 01/25/24 History Allergies Allergy/AdvReac Type Severity Reaction Status Date / Time No Known Allergies Allergy Verified 01/24/24 22:07 Vital Signs Vital Signs Temp Pulse Resp BP Pulse Ox O2 Del Method O2 Flow Rate 01/25/24 12:00 Room Air 01/25/24 12:00 98.1 F 119 H 20 138/88 94 01/25/24 10:00 99 01/25/24 08:00 81 01/25/24 08:00 98 18 98 Room Air 01/25/24 08:00 97.8 F 98 18 127/80 98 01/25/24 03:58 98.2 F 75 13 104/60 98 01/25/24 05:43 78 01/25/24 04:00 113 H 01/25/24 04:00 100 Nasal Cannula 2 01/25/24 00:16 75 13 115/77 100 01/25/24 00:15 75 12 100 01/25/24 00:00 76 15 100 01/24/24 23:54 78 16 98 01/24/24 23:31 82 16 133/81 100 01/24/24 23:17 83 15 120/98 H 01/24/24 23:16 85 15 01/24/24 21:30 127 H 15 144/106 H 97 01/24/24 22:53 121 H 16 134/97 H 97 01/24/24 21:35 128 H 01/24/24 21:16 96 Room Air 01/24/24 20:47 133 H 16 96 Room Air Results Lab Results 01/25/24 07:11 01/24/24 21:17 Lab results: Most recent lab results Calcium 8.3 mg/dL (8.4-10.2) L 01/24/24 21:17
--- NOTE | 2024-01-25 14:02 | P.PNIM_ITS ---
Progress Note: A&P Assessment and Plan (1) Chest pain: Qualifiers: Chest pain type: unspecified Qualified Code(s): R07.9 - Chest pain, unspecified Code(s): R07.9 - Chest pain, unspecified Status: Acute Assessment and Plan: Admit to IMU EKG with atrial fibrillation Cardiology consult Elevated troponins (2) Atrial fibrillation with RVR: Code(s): I48.91 - Unspecified atrial fibrillation Status: Acute Assessment and Plan: Rate controlled and anticoagulated (3) Chronic kidney disease (CKD) stage G5/A1, glomerular filtration rate (GFR) less than or equal to 15 mL/min/1.73 square meter and albuminuria creatinine ratio less than 30 mg/g: Code(s): N18.5 - Chronic kidney disease, stage 5 Status: Acute Assessment and Plan: Currently on dialysis Nephrology consult (4) Amputation of left foot: Code(s): S98.912A - Complete traumatic amputation of left foot, level unspecified, initial encounter Status: Acute Assessment and Plan: Local care (5) Insulin dependent diabetes mellitus: Status: Acute Assessment and Plan: Continue insulin Holding metformin Holding glipizide (6) Peripheral autonomic neuropathy due to diabetes mellitus: Code(s): E11.43 - Type 2 diabetes mellitus with diabetic autonomic (poly)neuropathy Status: Acute Assessment and Plan: Status post left foot amputation (7) Coronary artery disease: Code(s): I25.10 - Atherosclerotic heart disease of elim ira coronary artery without angina pectoris Status: Acute Assessment and Plan: Continue Entresto Plan Non ST elevation [place] -Possible cath tomorrow -Last Eliquis yesterday night? Pt is not sure about it. -Rosuvastatin 40 mg, and add aspirin 81 mg to his regimen -Cardiology switched his Lopressor 100 mg daily to b.i.d. and recommend weaning him off diltiazem drip -continue heparin drip and give sublingual nitro if needed -Echocardiogram pending -Denies any illicit drug use -Reviewed EKG and CXR PAD status post left foot amputation -reportedly had balloon angioplasty of left leg vessels -he will need surveillance SUSANA and ultrasound Doppler at some point this month Paroxysmal atrial fibrillation -continue holding Eliquis -heparin drip -Lopressor 100 mg b.i.d. -wean off diltiazem Hypertension -blood pressure at goal of less than 140 -continue amlodipine 5 mg p.o. daily Subjective Date/time seen: 01/25/24 14:02 Interval history: This is a 59-year-old male with past medical history significant for type 2 diabetes mellitus, atrial fibrillation, left foot amputation, chronic kidney disease currently on hemodialysis. Patient presents from local intermediate due to chest pain at the time of my visit patient denies any pain. Patient recently discharged from [facility] after undergoing amputation he was started on dialysis while on that admission. Cardiology was consulted due to the elevation of troponin. He reports yesterday he was in the dialysis center and started developing chest pain. Also he reports having 3 stents in the last one was placed 6 years ago in our [facility] in [facility]. As mentioned above ,patient was recently in [facility] this December for left leg amputation and started on dialysis due to CKD stage 5. Review of Systems Review of Systems: Chest pain, status post left foot amputation Exam Narrative: Laying in a stretcher Const: General: comfortable, no acute distress, well developed, alert, awake and average body habitus Nutritional Appearance: average body habitus Orientation/consciousness: patient oriented x3 HENMT: Head: normal to inspection, normocephalic and atraumatic Ears: hearing grossly normal bilaterally Face/Nose/Sinus: normal facial exam Face and sinus: normal facial exam Eyes: General: appearance normal, both eyes and all related structures Pupils: Equal, round and reactive pupils present EOM: EOMs intact bilaterally Neck: Neck: full ROM, no lymphadenopathy and no JVD Thyroid: thyroid normal Lymphatic: no lymphadenopathy noted Chest: Other: Right subclavian dialysis catheter Resp: Effort & Inspection: normal respiratory effort and able to speak in complete sentences Auscultation: clear to auscultation bilaterally Cardio: Jugular venous distension: no JVD Rate: regular rate Rhythm: regular rhythm Heart sounds: S1 normal heart sound present and S2 normal heart sound present : General: Yes deferred Skin: General skin exam: amputation site Rashes: no rashes Wounds: amputation site left foot without odor Neuro: General: patient oriented x3, CN's II-XI intact bilaterally and Unable to assess gait Cranial nerves: Yes CN's II-XII intact bilaterally and Yes Equal, round and reactive pupils present Cognition (Neuro): normal cognition Speech: normal speech Gait exam (Neuro): Unable to assess gait Motor exam (neuro): 5/5 motor strength present throughout Extrem: General: normal to inspection, full ROM, no joint enlargement and no pedal edema Left lower extremity: foot Details: other (Amputation) Objective Data Vital Signs Vital Signs: Vital Signs - 24 hr 01/24/24 20:47 01/24/24 21:16 01/24/24 21:35 Temperature Pulse Rate 133 H 128 H Respiratory Rate 16 Blood Pressure Pulse Oximetry 96 96 Oxygen Delivery Room Air Room Air Oxygen Flow Rate 01/24/24 22:53 01/24/24 21:30 01/24/24 23:16 Temperature Pulse Rate 121 H 127 H 85 Respiratory Rate 16 15 15 Blood Pressure 134/97 H 144/106 H Pulse Oximetry 97 97 Oxygen Delivery Oxygen Flow Rate 01/24/24 23:17 01/24/24 23:31 01/24/24 23:54 Temperature Pulse Rate 83 82 78 Respiratory Rate 15 16 16 Blood Pressure 120/98 H 133/81 Pulse Oximetry 100 98 Oxygen Delivery Oxygen Flow Rate 01/25/24 00:00 01/25/24 00:15 01/25/24 00:16 Temperature Pulse Rate 76 75 75 Respiratory Rate 15 12 13 Blood Pressure 115/77 Pulse Oximetry 100 100 100 Oxygen Delivery Oxygen Flow Rate 01/25/24 04:00 01/25/24 04:00 01/25/24 05:43 Temperature Pulse Rate 113 H 78 Respiratory Rate Blood Pressure Pulse Oximetry 100 Oxygen Delivery Nasal Cannula Oxygen Flow Rate 2 01/25/24 03:58 01/25/24 08:00 01/25/24 08:00 Temperature 98.2 F 97.8 F Pulse Rate 75 98 98 Respiratory Rate 13 18 18 Blood Pressure 104/60 127/80 Pulse Oximetry 98 98 98 Oxygen Delivery Room Air Oxygen Flow Rate 01/25/24 08:00 01/25/24 10:00 01/25/24 12:00 Temperature 98.1 F Pulse Rate 81 99 119 H Respiratory Rate 20 Blood Pressure 138/88 Pulse Oximetry 94 Oxygen Delivery Oxygen Flow Rate 01/25/24 12:00 01/25/24 12:00 Temperature Pulse Rate 118 H Respiratory Rate Blood Pressure Pulse Oximetry Oxygen Delivery Room Air Oxygen Flow Rate Intake/Output Intake/Output: Intake & Output 01/22/24 01/23/24 01/24/24 01/25/24 23:59 23:59 23:59 23:59 Intake Total 480 Balance 480 Meds/Results Medications: Active Medications Generic Name Dose Route Start Last Admin Trade Name Freq PRN Reason Stop Dose Admin Acetaminophen 1,000 mg 01/25/24 05:30 Acetaminophen 500 Mg Tablet PO Q6H PRN Mild Pain (1-3) or Fever Amlodipine Besylate 5 mg 01/25/24 09:00 01/25/24 08:16 Amlodipine Besylate 5 Mg Tablet PO 5 mg DAILY JASWANT Administration Apixaban 5 mg 01/25/24 09:00 Apixaban 5 Mg Tablet PO Q12HR JASWANT Aspirin 81 mg 01/26/24 09:00 Aspirin 81 Mg Enteric Tablet PO QAM JASWANT Bisacodyl 10 mg 01/25/24 05:23 Bisacodyl 10 Mg Suppository RECTAL DAILY PRN Constipation Bumetanide 2 mg 01/25/24 09:00 01/25/24 08:16 Bumetanide 1 Mg Tablet PO 2 mg BID JASWANT Administration Ceftriaxone Sodium 2 gm 01/25/24 09:00 01/25/24 08:36 Ceftriaxone 2 Gm/Ns 100 Ml Bag IVPB 02/24/24 08:59 2 gm DAILY JASWANT Administration Dextrose 12.5 gm 01/25/24 08:38 Dextrose 50% 25 Gm/50 Ml Syringe IV PUSH PRN PRN Hypoglycemia Protocol Empagliflozin 25 mg 01/25/24 09:00 01/25/24 08:16 Empagliflozin 25 Mg Tablet PO 02/24/24 08:59 25 mg DAILY JASWANT Administration Ferrous Sulfate 325 mg 01/25/24 09:00 01/25/24 08:16 Ferrous Sulfate [address] PO 02/24/24 08:59 325 mg DAILY JASWANT Administration Glucagon 1 mg 01/25/24 08:38 Glucagon For Inj 1 Mg Vial IM PRN PRN Hypoglycemia Protocol Glucose 15 gm 01/25/24 08:38 Glucose Oral Gel 15 Gm Of Glucse In 37.5 Gm Tube PO PRN PRN Hypoglycemia Protocol Heparin Sodium (Porcine) 4,000 units 01/25/24 06:25 Heparin Sodium 5,000 Units/Ml Vial IV PUSH PRN PRN aPTT less than 55 seconds Heparin Sodium (Porcine) 3,500 units 01/25/24 06:25 Heparin Sodium 5,000 Units/Ml Vial IV PUSH PRN PRN aPTT 55 - 70 seconds Diltiazem HCl 100 mg in 100 mls @ 5 mls/hr 01/25/24 03:10 01/25/24 05:09 Cardizem 100 Mg/100 Ml IV CONT Not Given .Q20H JASWANT 5 MG/HR Heparin Sodium/Dextrose 25,000 units in 250 mls @ 10 mls/hr 01/25/24 06:25 01/25/24 08:14 Heparin Sodium/D5w 100 Units/Ml IV CONT 1,000 units/hr .Q24H JASWANT 10 mls/hr Administration Protocol 1,000 UNITS/HR Dextrose 1,000 mls @ 100 mls/hr 01/25/24 08:38 Dextrose 5% 1,000 Ml IVPB PRN PRN Hypoglycemia Protocol Insulin Aspart 3 - 6 units 01/25/24 08:40 01/25/24 12:05 Insulin Aspart (*Bkc) 100 Units/Ml SUB-Q 3 units TIDWM JASWANT Administration Protocol Insulin Glargine 20 units 01/25/24 09:00 01/25/24 08:28 Insulin Glargine (*Bkc) 100 Units/Ml SUB-Q 02/24/24 08:59 20 units DAILY JASWANT Administration Metoprolol Tartrate 100 mg 01/25/24 21:00 Metoprolol Tartrate 50 Mg Tab PO Q12HR JASWANT Morphine Sulfate 2 mg 01/25/24 01:53 Morphine Sulfate (*Crx) 2 Mg/Ml Inj IV PUSH Q2H PRN Pain Rated 7-10 Nitroglycerin 0.4 mg 01/25/24 12:44 Nitroglycerin Sl 0.4 Mg Tablet SUBLINGUAL Q5MIN PRN Chest Pain Olanzapine 5 mg 01/25/24 05:23 Olanzapine 5 Mg Tablet PO Q6H PRN Anxiety Ondansetron HCl 4 mg 01/25/24 01:53 Ondansetron Inj 4 Mg/2 Ml Vial IV PUSH Q4H PRN Nausea Pantoprazole Sodium 40 mg 01/25/24 09:00 01/25/24 08:16 Pantoprazole 40 Mg Tablet PO 40 mg QAM JASWANT Administration Perflutren Lipid Microsphere 0 ml 01/25/24 12:43 Perflutren Lipid Microspheres 1.5 Ml Vial Diluted To 10 Ml Total Volume IV PUSH 01/28/24 12:43 ONCE PRN adequate visualization Protocol Polyethylene Glycol 17 gm 01/25/24 05:23 Polyethylene Glycol 3350 17 Gm Powd.Pack PO DAILY PRN Constipation Rosuvastatin Calcium 40 mg 01/25/24 09:00 01/25/24 08:16 Rosuvastatin 20 Mg Tablet PO 40 mg DAILY JASWANT Administration Sacubitril/Valsartan 1 tab 01/25/24 09:00 01/25/24 08:16 Sacubitril/Valsartan 24-26 Mg Tablet PO 1 tab Q12HR JASWANT Administration Sevelamer Carbonate 1,600 mg 01/25/24 08:00 01/25/24 12:05 Sevelamer Carbonate 800 Mg Tablet PO 1,600 mg TIDWM JASWANT Administration Sodium Polystyrene Sulfonate 15 gm 01/25/24 09:00 01/25/24 08:37 Sodium Polystyrene Sulfononate 15 Gm/60 Ml Btl PO Not Given DAILY JASWANT Tamsulosin HCl 0.4 mg 01/25/24 21:00 Tamsulosin Hcl 0.4 Mg Capsule PO [facility] Radiology Results: ITS Impressions Chest X-Ray 01/24/24 21:45 IMPRESSION: Mild pulmonary vascular congestion with small bilateral pleural effusions, as detailed above. Labs Labs: Laboratory Results - last 24 hr 01/24/24 01/25/24 01/25/24 21:17 00:47 02:33 WBC 10.0 RBC 3.22 L Hgb 9.0 L Hct 29.0 L MCV 90.1 MCH 28.0 MCHC 31.0 L RDW 15.5 H Plt Count 228 MPV 9.2 Immature Gran % (Auto) 0.7 H Neut % (Auto) 85.2 H Lymph % (Auto) 5.6 L [place] % (Auto) 7.0 Eos % (Auto) 1.1 Baso % (Auto) 0.4 Lymph # (Auto) 0.56 L [place] # (Auto) 0.7 H Eos # (Auto) 0.1 Baso # (Auto) 0.0 Abs Immat Gran (auto) 0.07 H Absolute Neuts (auto) 8.5 H Absolute Nucleated RBC 0.000 Nucleated RBC % 0.0 PT 16.6 H INR 1.3 APTT 37.2 H Sodium 136 L Potassium 3.9 Chloride 98 Carbon Dioxide 29 Anion Gap 9 BUN 18 Creatinine 4.10 H Estim Creat Clear Calc 23 Estimated GFR 15 L Glucose 344 H POC Capillary Glucose 340 H Calcium 8.3 L Total Bilirubin 0.3 AST 24 ALT 11 Alkaline Phosphatase 94 Troponin I 0.144 H* 1.300 H* D Total Protein 7.0 Albumin 3.2 L Lipase 68 01/25/24 01/25/24 01/25/24 04:20 07:11 07:44 WBC 8.5 RBC 2.72 L Hgb 7.7 L Hct 25.0 L MCV 91.9 MCH 28.3 MCHC 30.8 L RDW 15.8 H Plt Count 191 MPV 9.4 Immature Gran % (Auto) 0.5 Neut % (Auto) 80.4 H Lymph % (Auto) 8.3 L [place] % (Auto) 8.4 Eos % (Auto) 2.0 Baso % (Auto) 0.4 Lymph # (Auto) 0.70 L [place] # (Auto) 0.7 H Eos # (Auto) 0.2 Baso # (Auto) 0.0 Abs Immat Gran (auto) 0.04 H Absolute Neuts (auto) 6.8 H Absolute Nucleated RBC 0.000 Nucleated RBC % 0.0 PT 17.8 H INR 1.4 APTT 42.5 H Sodium Potassium Chloride Carbon Dioxide Anion Gap BUN Creatinine Estim Creat Clear Calc Estimated GFR Glucose POC Capillary Glucose 246 H Calcium Total Bilirubin AST ALT Alkaline Phosphatase Troponin I 1.690 H* D Total Protein Albumin Lipase Hospitalist MIPS Advance Care Plan I have confirmed that the patient's Advanced Care Plan is present, code status is documented, or surrogate decision maker is listed in patient medical record.: Yes Medication Reconciliation I have utilized all available resources to obtain, update and review the patients current medications (includes all prescriptions, OTC, herbals, cannabis, and nutritional supplements).: Yes
[2024-01-25 14:13] LABS: Glucose Point of Care 239 mg/dl (65-105)
[2024-01-25 14:37] LABS: Partial Thromboplastin Time 47.4 Seconds (22.3-36.8)
[2024-01-25] MEDS: HEPARIN SODIUM 5,000 UNITS/ML VIAL 4000 UNITS IV PUSH (14:50)
[2024-01-25 16:32] LABS: Glucose Point of Care 150 mg/dl (65-105)
[2024-01-25] MEDS: PERFLUTREN LIPID MICROSPHERES 1.5 ML VIAL DILUTED TO 10 ML TOTAL VOLUME IV PUSH (17:19)
--- NOTE | 2024-01-25 17:19 | IVDEFINITY ---
Prior to administration of IV Definity the patient was educated on the risks and benefits of the imaging enhancing agent including potential adverse side effects. The patient verbalized understanding. Allergies were verified. No exclusion criteria were identified and at least one of the following inclusion criteria were met: 1) physician request, 2) patient technically difficult to image (per the [place] [employer] guidelines of two or more segments not discernable within the apical view), or 3) questionable left ventricular function. ?
[2024-01-25] MEDS: TAMSULOSIN HCL 0.4 MG CAPSULE PO (20:18)
[2024-01-25 20:56] LABS: Glucose Point of Care 224 mg/dl (65-105)
[2024-01-26] VITALS (37 sets, daily range): BP systolic 105–148; BP diastolic 63–99; PULSE 69–122; RESP 12–22; TEMP 36.4–37.1; O2SAT 93–100
[2024-01-26] MEDS: HEPARIN SOD/D5W 100 UNITS/ML 25,000 UNITS/250 ML BAG 14 UNITS IV CONT (03:22)
[2024-01-26 04:14] LABS: Basophils Percent Auto 0.3 % (0.2-1.2); Eosinophils Absolute Auto 0.2 K/mm3 (0-0.3); Eosinophils Percent Auto 3.1 % (0-4.4); Hematocrit 24.6 % (42.0-52.0); Hemoglobin 7.7 g/dL (14.0-18.0); Immature Granulocyte Absolute 0.07 K/mm3 (0.00-0.031); Immature Granulocyte Percent A 0.9 % (0-0.5); Lymphocytes Absolute Auto 0.83 K/mm3 (0.9-3.2); Lymphocytes Percent Auto 11.2 % (18.3-44.2); Mean Corpuscular HGB Conc 31.3 g/dl (32-36); Mean Corpuscular Hemoglobin 28.5 pg (26-34); Mean Corpuscular Volume 91.1 fl (80-100); Mean Platelet Volume 9.1 fl (7.4-10.4); Monocytes Absolute Auto 0.6 K/mm3 (0.1-0.6); Monocytes Percent Auto 8.4 % (2.6-8.5); Neutrophils Absolute Auto 5.6 K/mm3 (1.3-6.7); Neutrophils Percent Auto 76.1 % (45.5-73.1); Platelet Count Result 175 k/mm3 (150-375); Red Cell Distribution Width 15.8 % (11.5-14.5); White Blood Count 7.4 K/mm3 (4.5-10.0)
[2024-01-26 04:23] LABS: Alanine Aminotransferase 9 U/L (6-50); Albumin Level 2.8 g/dL (3.5-5.1); Alkaline Phosphatase 71 U/L (38-126); Anion Gap 6 mmol/L (4-12); Aspartate Amino Transferase 21 U/L (17-59); Bilirubin,Total 0.3 mg/dL (0.2-1.3); Blood Urea Nitrogen 23 mg/dL (9-20); Calcium 8.4 mg/dL (8.4-10.2); Carbon Dioxide 32 mmol/L (22-30); Chloride 99 mmol/L (98-107); Estimated CRCL calculation 18 ml/min; Estimated Glomerular Filt Rate 11; Glucose 181 mg/dL (65-110); Sodium 137 mmol/L (137-145)
[2024-01-26 04:32] LABS: Partial Thromboplastin Time 67.1 Seconds (22.3-36.8)
[2024-01-26] MEDS: HEPARIN SODIUM 5,000 UNITS/ML VIAL 3500 UNITS IV PUSH (04:37)
[2024-01-26 05:50] LABS: Hepatitis B Surface Antigen Negative (Negative)
[2024-01-26 06:07] LABS: Hepatitis B Surface Anti Res Negative
[2024-01-26 07:41] LABS: Glucose Point of Care 202 mg/dl (65-105)
[2024-01-26] MEDS: CEFTRIAXONE IVPB (08:57)
[2024-01-26] MEDS: NS IVPB (08:57)
[2024-01-26] MEDS: amLODIPine BESYLATE 5 MG TABLET PO (09:12)
[2024-01-26] MEDS: PANTOPRAZOLE 40 MG TABLET PO (09:12)
[2024-01-26] MEDS: METOPROLOL TARTRATE 50 MG TAB 100 MG PO ×2 (09:12→20:13)
[2024-01-26] MEDS: FERROUS SULFATE 325 MG TABLET DR PO (09:12)
[2024-01-26] MEDS: ASPIRIN 81 MG ENTERIC TABLET PO (09:13)
[2024-01-26] MEDS: EMPAGLIFLOZIN 25 MG TABLET PO (09:13)
[2024-01-26] MEDS: BUMETANIDE 1 MG TABLET 2 MG PO (09:13)
[2024-01-26] MEDS: ROSUVASTATIN 20 MG TABLET 40 MG PO (09:13)
[2024-01-26] MEDS: SACUBITRIL/VALSARTAN 24-26 MG TABLET 1 TAB PO ×2 (09:24→20:13)
--- NOTE | 2024-01-26 10:26 | P.SEDATION_ITS ---
Moderate Sedation Note-Pt Data Patient Data Diagnosis: NSTEMI Present Complaint: NSTEMI Procedure to be performed/Plan: Coronary angiography, left heart cath, +/- PCI Allergies Allergy/AdvReac Type Severity Reaction Status Date / Time No Known Allergies Allergy Verified 01/24/24 22:07 Home Medications Medication Instructions Recorded Confirmed Type acetaminophen 325 mg chewable 325 mg PO Q4H PRN Pain (Scale 01/25/24 01/25/24 Hi story tablet Score 1-3) amlodipine 5 mg tablet 5 mg PO DAILY 01/25/24 01/25/24 History apixaban 5 mg tablet (Eliquis) 5 mg PO BID 01/25/24 01/25/24 History ascorbate calcium (vitamin C) 500 500 mg PO HS 01/25/24 01/25/24 History mg tablet bisacodyl 10 mg rectal suppository 10 mg RECTAL DAILY PRN Constipation 01/25/24 01/25/24 History bumetanide 2 mg tablet 2 mg PO BID 01/25/24 01/25/24 History ceftriaxone 2 gram intravenous 2 g IV DAILY 01/25/24 01/25/24 History solution dapagliflozin propanediol 10 mg 10 mg PO DAILY 01/25/24 01/25/24 History tablet (Farxiga) ferrous sulfate 325 mg (65 mg 325 mg PO DAILY 01/25/24 01/25/24 History iron) capsule,extended release glipizide 10 mg tablet 10 mg PO BID 01/25/24 01/25/24 History insulin degludec 100 unit/mL (3 20 unit subcut DAILY 01/25/24 01/25/24 History mL) subcutaneous pen (Tresiba FlexTouch U-100 insulin) metformin 500 mg tablet 500 mg PO BID 01/25/24 01/25/24 History metoprolol tartrate 100 mg tablet 100 mg PO DAILY 01/25/24 01/25/24 History olanzapine 5 mg tablet 5 mg PO Q6H PRN Anxiety 01/25/24 01/25/24 History pantoprazole 40 mg tablet,delayed 40 mg PO QAM 01/25/24 01/25/24 History release polyethylene glycol 3350 17 gram 17 g PO DAILY PRN Constipation 01/25/24 01/25/24 History oral powder packet (Miralax) rosuvastatin 40 mg tablet 40 mg PO DAILY 01/25/24 01/25/24 History sacubitril 24 mg-valsartan 26 mg 1 tablet PO BID 01/25/24 01/25/24 History tablet (Entresto) sevelamer carbonate 800 mg tablet 1,600 mg PO TIDWM 01/25/24 01/25/24 History sodium polystyrene sulfonate 15 60 ml PO DAILY 01/25/24 01/25/24 History gram-sorbitol 20 gram/60 mL oral susp (SPS (with sorbitol)) tamsulosin 0.4 mg capsule 0.4 mg PO HS 01/25/24 01/25/24 History Current Medications: Active Medications Acetaminophen (Acetaminophen 500 Mg Tablet) 1,000 mg PO Q6H PRN PRN Reason: Mild Pain (1-3) or Fever Amlodipine Besylate (Amlodipine Besylate 5 Mg Tablet) 5 mg PO DAILY [facility] Last Admin: 01/26/24 09:12 Dose: 5 mg Apixaban (Apixaban 5 Mg Tablet) 5 mg PO Q12HR [facility] Aspirin (Aspirin 81 Mg Enteric Tablet) 81 mg PO QAM [facility] Last Admin: 01/26/24 09:13 Dose: 81 mg Bisacodyl (Bisacodyl 10 Mg Suppository) 10 mg RECTAL DAILY PRN PRN Reason: Constipation Bumetanide (Bumetanide 1 Mg Tablet) 2 mg PO BID [facility] Last Admin: 01/26/24 09:13 Dose: 2 mg Ceftriaxone Sodium (Ceftriaxone 2 Gm/Ns 100 Ml Bag) 2 gm IVPB DAILY [facility] Stop: 02/24/24 08:59 Last Admin: 01/26/24 08:57 Dose: 2 gm Dextrose (Dextrose 50% 25 Gm/50 Ml Syringe) 12.5 gm IV PUSH PRN PRN; Protocol PRN Reason: Hypoglycemia Empagliflozin (Empagliflozin 25 Mg Tablet) 25 mg PO DAILY [facility] Stop: 02/24/24 08:59 Last Admin: 01/26/24 09:13 Dose: 25 mg Epoetin Denilson-epbx (Epoetin Denilson-Epbx 10,000 Units/Ml Vial) 10,000 units IV PUSH ONCE ONE Stop: 01/26/24 20:01 Ferrous Sulfate (Ferrous Sulfate [address]) 325 mg PO DAILY [facility] Stop: 02/24/24 08:59 Last Admin: 01/26/24 09:12 Dose: 325 mg Glucagon (Glucagon For Inj 1 Mg Vial) 1 mg IM PRN PRN; Protocol PRN Reason: Hypoglycemia Glucose (Glucose Oral Gel 15 Gm Of Glucse In 37.5 Gm Tube) 15 gm PO PRN PRN; Protocol PRN Reason: Hypoglycemia Heparin Sodium (Porcine) (Heparin Sodium 5,000 Units/Ml Vial) 4,000 units IV PUSH PRN PRN PRN Reason: aPTT less than 55 seconds Last Admin: 01/25/24 14:50 Dose: 4,000 units Heparin Sodium (Porcine) (Heparin Sodium 5,000 Units/Ml Vial) 3,500 units IV PUSH PRN PRN PRN Reason: aPTT 55 - 70 seconds Last Admin: 01/26/24 04:37 Dose: 3,500 units Heparin Sodium/Dextrose (Heparin Sodium/D5w 100 Units/Ml) 25,000 units in 250 mls @ 16 mls/hr IV CONT .[id number] JASWANT; Protocol Last Titration: 01/26/24 04:36 Dose: 1,600 units/hr, 16 mls/hr Dextrose (Dextrose 5% 1,000 Ml) 1,000 mls @ 100 mls/hr IVPB PRN PRN; Protocol PRN Reason: Hypoglycemia Albumin Human (Albutein) 50 mls @ 999 mls/hr IVPB Q10M PRN PRN Reason: HYPOTENSION Stop: 02/25/24 07:09 Insulin Aspart (Insulin Aspart (*Bkc) 100 Units/Ml) 3 - 6 units SUB-Q TIDWM JASWANT; Protocol Last Admin: 01/26/24 08:13 Dose: Not Given Insulin Glargine (Insulin Glargine (*Bkc) 100 Units/Ml) 20 units SUB-Q DAILY [facility] Stop: 02/24/24 08:59 Last Admin: 01/25/24 08:28 Dose: 20 units Metoprolol Tartrate (Metoprolol Tartrate 50 Mg Tab) 100 mg PO Q12HR JASWANT Last Admin: 01/26/24 09:12 Dose: 100 mg Morphine Sulfate (Morphine Sulfate (*Crx) 2 Mg/Ml Inj) 2 mg IV PUSH Q2H PRN PRN Reason: Pain Rated 7-10 Nitroglycerin (Nitroglycerin Sl 0.4 Mg Tablet) 0.4 mg SUBLINGUAL Q5MIN PRN PRN Reason: Chest Pain Olanzapine (Olanzapine 5 Mg Tablet) 5 mg PO Q6H PRN PRN Reason: Anxiety Ondansetron HCl (Ondansetron Inj 4 Mg/2 Ml Vial) 4 mg IV PUSH Q4H PRN PRN Reason: Nausea Pantoprazole Sodium (Pantoprazole 40 Mg Tablet) 40 mg PO QAM [facility] Last Admin: 01/26/24 09:12 Dose: 40 mg Polyethylene Glycol (Polyethylene Glycol 3350 17 Gm Powd.Pack) 17 gm PO DAILY PRN PRN Reason: Constipation Rosuvastatin Calcium (Rosuvastatin 20 Mg Tablet) 40 mg PO DAILY [facility] Last Admin: 01/26/24 09:13 Dose: 40 mg Sacubitril/Valsartan (Sacubitril/Valsartan 24-26 Mg Tablet) 1 tab PO Q12HR [facility] Last Admin: 01/26/24 09:24 Dose: 1 tab Sevelamer Carbonate (Sevelamer Carbonate 800 Mg Tablet) 1,600 mg PO TIDWM [facility] Last Admin: 01/26/24 08:18 Dose: Not Given Sodium Chloride (Saline Lock Flush) 10 ml IV PUSH Q8HR [facility] Sodium Chloride (Saline Lock Flush) 10 ml IV PUSH PRN PRN PRN Reason: Flush Sodium Chloride (Saline Lock Flush) 20 ml IV PUSH PRN PRN PRN Reason: after blood draws Sodium Polystyrene Sulfonate (Sodium Polystyrene Sulfononate 15 Gm/60 Ml Btl) 15 gm PO DAILY [facility] Last Admin: 01/25/24 08:37 Dose: Not Given Tamsulosin HCl (Tamsulosin Hcl 0.4 Mg Capsule) 0.4 mg PO [facility] Last Admin: 01/25/24 20:18 Dose: 0.4 mg Sedation/Anesthesia: No previous sedation/anesthesia problems (including family history). [facility] Social History Social History Smokeless tobacco user: chewing tobacco Alcohol intake: never Substance use: never Do You Feel Safe in your Home?: No Lack of Transportation: No Lack of Food: Never True Current Housing: I Have Housing Concerned About Future Housing: No Difficulty Paying Gas/Electric Bills: No Difficulty Paying for Meds: No Currently Unemployed: No Education: High School Diploma/GED Difficulty w/ Childcare or Family Care: No Spiritual care concerns: No Mod Sed Physical Exam Physical Exam Pre Procedural Exam: Normal: Appearance, Lungs, Heart Rate, Heart Rhythm and Neuro Exam and Variation: Extremities (Left lower extremity amputation ) Hours since solid foods: 12 Hours since liquid intake: 8 Mallampati Classification: class III Internal Medicine - PN: Obj Da Vital Signs Vital Signs: Vital Signs - 24 hr 01/25/24 12:00 01/25/24 12:00 01/25/24 12:00 Temperature 36.7 C Pulse Rate 119 H 118 H Respiratory Rate 20 Blood Pressure 138/88 Pulse Oximetry 94 Oxygen Delivery Room Air 01/25/24 14:00 01/25/24 16:00 01/25/24 16:00 Temperature Pulse Rate 115 H 71 Respiratory Rate Blood Pressure Pulse Oximetry Oxygen Delivery Room Air 01/25/24 16:00 01/25/24 18:00 01/25/24 20:00 Temperature 36.4 C Pulse Rate 113 H 71 71 Respiratory Rate 22 H 22 H Blood Pressure 136/92 H Pulse Oximetry 98 98 Oxygen Delivery Room Air 01/25/24 20:27 01/25/24 20:19 01/25/24 20:00 Temperature 36.6 C Pulse Rate 117 H 117 H 116 H Respiratory Rate 22 H Blood Pressure 118/67 Pulse Oximetry 98 Oxygen Delivery 01/25/24 21:52 01/25/24 23:50 01/26/24 00:03 Temperature 37.1 C Pulse Rate 115 H 115 H 73 Respiratory Rate 22 H 22 H Blood Pressure 105/63 Pulse Oximetry 98 100 Oxygen Delivery Room Air 01/26/24 00:00 01/26/24 02:00 01/26/24 04:11 Temperature 36.5 C Pulse Rate 89 73 80 Respiratory Rate 22 H Blood Pressure 116/64 Pulse Oximetry 97 Oxygen Delivery 01/26/24 04:00 01/26/24 04:00 01/25/24 22:32 Temperature Pulse Rate 80 117 H Respiratory Rate 22 H Blood Pressure Pulse Oximetry 97 98 Oxygen Delivery Room Air Room Air 01/26/24 06:00 01/26/24 08:00 01/26/24 09:12 Temperature 36.9 C Pulse Rate 74 76 71 Respiratory Rate 18 Blood Pressure 116/70 Pulse Oximetry 98 Oxygen Delivery 01/26/24 08:00 Temperature Pulse Rate 76 Respiratory Rate Blood Pressure Pulse Oximetry Oxygen Delivery Intake/Output Intake/Output: Intake & Output 01/23/24 01/24/24 01/25/24/08/24 23:59 23:59 23:59 23:59 Intake Total 1494.3 734.0 Output Total 1300 500 Balance 194.3 234.0 Meds/Results Medications: Active Medications Generic Name Dose Route Start Last Admin Trade Name Piero PRN Reason Stop Dose Admin Acetaminophen 1,000 mg 01/25/24 05:30 Acetaminophen 500 Mg Tablet PO Q6H PRN Mild Pain (1-3) or Fever Amlodipine Besylate 5 mg 01/25/24 09:00 01/26/24 09:12 Amlodipine Besylate 5 Mg Tablet PO 5 mg DAILY JASWANT Administration Apixaban 5 mg 01/25/24 09:00 Apixaban 5 Mg Tablet PO Q12HR JASWANT Aspirin 81 mg 01/26/24 09:00 01/26/24 09:13 Aspirin 81 Mg Enteric Tablet PO 81 mg QAM JASWANT Administration Bisacodyl 10 mg 01/25/24 05:23 Bisacodyl 10 Mg Suppository RECTAL DAILY PRN Constipation Bumetanide 2 mg 01/25/24 09:00 01/26/24 09:13 Bumetanide 1 Mg Tablet PO 2 mg BID JASWANT Administration Ceftriaxone Sodium 2 gm 01/25/24 09:00 01/26/24 08:57 Ceftriaxone 2 Gm/Ns 100 Ml Bag IVPB 02/24/24 08:59 2 gm DAILY JASWANT Administration Dextrose 12.5 gm 01/25/24 08:38 Dextrose 50% 25 Gm/50 Ml Syringe IV PUSH PRN PRN Hypoglycemia Protocol Empagliflozin 25 mg 01/25/24 09:00 01/26/24 09:13 Empagliflozin 25 Mg Tablet PO 02/24/24 08:59 25 mg DAILY JASWANT Administration Epoetin Denilson-epbx 10,000 units 01/26/24 20:00 Epoetin Denilson-Epbx 10,000 Units/Ml Vial IV PUSH 01/26/24 20:01 ONCE ONE Ferrous Sulfate 325 mg 01/25/24 09:00 01/26/24 09:12 Ferrous Sulfate [address] PO 02/24/24 08:59 325 mg DAILY JASWANT Administration Glucagon 1 mg 01/25/24 08:38 Glucagon For Inj 1 Mg Vial IM PRN PRN Hypoglycemia Protocol Glucose 15 gm 01/25/24 08:38 Glucose Oral Gel 15 Gm Of Glucse In 37.5 Gm Tube PO PRN PRN Hypoglycemia Protocol Heparin Sodium (Porcine) 4,000 units 01/25/24 06:25 01/25/24 14:50 Heparin Sodium 5,000 Units/Ml Vial IV PUSH 4,000 units PRN PRN Administration aPTT less than 55 seconds Heparin Sodium (Porcine) 3,500 units 01/25/24 06:25 01/26/24 04:37 Heparin Sodium 5,000 Units/Ml Vial IV PUSH 3,500 units PRN PRN Administration aPTT 55 - 70 seconds Heparin Sodium/Dextrose 25,000 units in 250 mls @ 16 mls/hr 01/25/24 06:25 01/26/24 04:36 Heparin Sodium/D5w 100 Units/Ml IV CONT 1,600 units/hr .[id number] JASWANT 16 mls/hr Titration Protocol 1,600 UNITS/HR Dextrose 1,000 mls @ 100 mls/hr 01/25/24 08:38 Dextrose 5% 1,000 Ml IVPB PRN PRN Hypoglycemia Protocol Albumin Human 50 mls @ 999 mls/hr 01/26/24 07:10 Albutein IVPB 02/25/24 07:09 Q10M PRN HYPOTENSION Insulin Aspart 3 - 6 units 01/25/24 08:40 01/26/24 08:13 Insulin Aspart (*Bkc) 100 Units/Ml SUB-Q Not Given TIDWM [facility] Protocol Insulin Glargine 20 units 01/25/24 09:00 01/25/24 08:28 Insulin Glargine (*Bkc) 100 Units/Ml SUB-Q 02/24/24 08:59 20 units DAILY JASWANT Administration Metoprolol Tartrate 100 mg 01/25/24 21:00 01/26/24 09:12 Metoprolol Tartrate 50 Mg Tab PO 100 mg Q12HR JASWANT Administration Morphine Sulfate 2 mg 01/25/24 01:53 Morphine Sulfate (*Crx) 2 Mg/Ml Inj IV PUSH Q2H PRN Pain Rated 7-10 Nitroglycerin 0.4 mg 01/25/24 12:44 Nitroglycerin Sl 0.4 Mg Tablet SUBLINGUAL Q5MIN PRN Chest Pain Olanzapine 5 mg 01/25/24 05:23 Olanzapine 5 Mg Tablet PO Q6H PRN Anxiety Ondansetron HCl 4 mg 01/25/24 01:53 Ondansetron Inj 4 Mg/2 Ml Vial IV PUSH Q4H PRN Nausea Pantoprazole Sodium 40 mg 01/25/24 09:00 01/26/24 09:12 Pantoprazole 40 Mg Tablet PO 40 mg QAM JASWANT Administration Polyethylene Glycol 17 gm 01/25/24 05:23 Polyethylene Glycol 3350 17 Gm Powd.Pack PO DAILY PRN Constipation Rosuvastatin Calcium 40 mg 01/25/24 09:00 01/26/24 09:13 Rosuvastatin 20 Mg Tablet PO 40 mg DAILY JASWANT Administration Sacubitril/Valsartan 1 tab 01/25/24 09:00 01/26/24 09:24 Sacubitril/Valsartan 24-26 Mg Tablet PO 1 tab Q12HR JASWANT Administration Sevelamer Carbonate 1,600 mg 01/25/24 08:00 01/26/24 08:18 Sevelamer Carbonate 800 Mg Tablet PO Not Given TIDWM JASWANT Sodium Chloride 10 ml 01/26/24 14:00 Saline Lock Flush IV PUSH Q8HR JASWANT Sodium Chloride 10 ml 01/26/24 06:34 Saline Lock Flush IV PUSH PRN PRN Flush Sodium Chloride 20 ml 01/26/24 06:34 Saline Lock Flush IV PUSH PRN PRN after blood draws Sodium Polystyrene Sulfonate 15 gm 01/25/24 09:00 01/25/24 08:37 Sodium Polystyrene Sulfononate 15 Gm/60 Ml Btl PO Not Given DAILY JASWANT Tamsulosin HCl 0.4 mg 01/25/24 21:00 01/25/24 20:18 Tamsulosin Hcl 0.4 Mg Capsule PO 0.4 mg HS JASWANT Administration Radiology Results: ITS Impressions Chest X-Ray 01/24/24 21:45 IMPRESSION: Mild pulmonary vascular congestion with small bilateral pleural effusions, as detailed above. Labs 01/26/24 04:03 01/26/24 04:03 Labs: Laboratory Results - last 24 hr 01/25/24 01/25/24 01/25/24 11:34 14:15 15:59 WBC RBC Hgb Hct MCV MCH MCHC RDW Plt Count MPV Immature Gran % (Auto) Neut % (Auto) Lymph % (Auto) [place] % (Auto) Eos % (Auto) Baso % (Auto) Lymph # (Auto) [place] # (Auto) Eos # (Auto) Baso # (Auto) Abs Immat Gran (auto) Absolute Neuts (auto) Absolute Nucleated RBC Nucleated RBC % APTT 47.4 H Sodium Potassium Chloride Carbon Dioxide Anion Gap BUN Creatinine Estim Creat Clear Calc Estimated GFR Glucose POC Capillary Glucose 239 H 150 H Calcium Total Bilirubin AST ALT Alkaline Phosphatase Total Protein Albumin Hep Bs Antigen Hep Bs Antibody 01/25/24 01/25/24 01/26/24 20:22 21:28 04:03 WBC 7.4 RBC 2.70 L Hgb 7.7 L Hct 24.6 L MCV 91.1 MCH 28.5 MCHC 31.3 L RDW 15.8 H Plt Count 175 MPV 9.1 Immature Gran % (Auto) 0.9 H Neut % (Auto) 76.1 H Lymph % (Auto) 11.2 L [place] % (Auto) 8.4 Eos % (Auto) 3.1 Baso % (Auto) 0.3 Lymph # (Auto) 0.83 L [place] # (Auto) 0.6 Eos # (Auto) 0.2 Baso # (Auto) 0.0 Abs Immat Gran (auto) 0.07 H Absolute Neuts (auto) 5.6 Absolute Nucleated RBC 0.000 Nucleated RBC % 0.0 APTT 73.0 H 67.1 H Sodium 137 Potassium 4.0 Chloride 99 Carbon Dioxide 32 H Anion Gap 6 BUN 23 H Creatinine 5.20 H Estim Creat Clear Calc 18 Estimated GFR 11 L Glucose 181 H POC Capillary Glucose 224 H Calcium 8.4 Total Bilirubin 0.3 AST 21 ALT 9 Alkaline Phosphatase 71 Total Protein 6.0 L Albumin 2.8 L Hep Bs Antigen Negative Hep Bs Antibody Negative 01/26/24 07:39 WBC RBC Hgb Hct MCV MCH MCHC RDW Plt Count MPV Immature Gran % (Auto) Neut % (Auto) Lymph % (Auto) [place] % (Auto) Eos % (Auto) Baso % (Auto) Lymph # (Auto) [place] # (Auto) Eos # (Auto) Baso # (Auto) Abs Immat Gran (auto) Absolute Neuts (auto) Absolute Nucleated RBC Nucleated RBC % APTT Sodium Potassium Chloride Carbon Dioxide Anion Gap BUN Creatinine Estim Creat Clear Calc Estimated GFR Glucose POC Capillary Glucose 202 H Calcium Total Bilirubin AST ALT Alkaline Phosphatase Total Protein Albumin Hep Bs Antigen Hep Bs Antibody ASA Classification/Sedation ASA Classification/Sedation ASA Class: III Emergent: No Risks: Risks, benefits and alternatives explained and patient/family accepted plan for sedation. Patient re-evaluated immediately prior to sedation.
--- NOTE | 2024-01-26 10:27 | PM.PNCARD ---
Progress Note: A&P Assessment and Plan (1) NSTEMI (non-ST elevated myocardial infarction): Code(s): I21.4 - Non-ST elevation (NSTEMI) myocardial infarction Status: Acute (2) Peripheral arterial disease: Code(s): I73.9 - Peripheral vascular disease, unspecified Status: Acute (3) Coronary artery disease: Code(s): I25.10 - Atherosclerotic heart disease of tolowa dee-ni' coronary artery without angina pectoris Status: Acute (4) Insulin dependent diabetes mellitus: Status: Acute (5) Atrial fibrillation with RVR: Code(s): I48.91 - Unspecified atrial fibrillation Status: Acute (6) ESRD (end stage renal disease): Code(s): N18.6 - End stage renal disease Status: Acute Plan 59-year-old man with ESRD on hemodialysis, PAD status post left foot amputation, diabetes mellitus type 2 and paroxysmal atrial fibrillation on Eliquis presented from [facility] for chest pain Non ST elevation [place] -[facility] today. Further recommendations and plan pending results of [facility]> -Continue Rosuvastatin 40 mg every evening and Aspirin 81 mg to his regimen. -Continue Heparin drip for now. Coronary artery disease -Reports history of prior stents, we do not have the details regarding this. -[facility] as above. Heart failure with mildly reduced LVEF of 45-50% per TTE 01/25/2024 -Echo this hospitalization shows LVEF 45-50%. Unclear if this is a new diagnosis for him since we do not have any of his prior medical records, however, he is on heart failure GDMT at home on Jardiance, Entresto, Metoprolol, so I do not suspect it is a new diagnosis for him. -Continue current heart failure GDMT. Transition Metoprolol tartrate to succinate prior to discharge. PAD status post left foot amputation -Reportedly had balloon angioplasty of left leg vessels -He will need surveillance SUSANA and ultrasound Doppler at some point this month Paroxysmal atrial fibrillation -Continue holding Eliquis -Heparin drip -Lopressor 100 mg BID Hypertension -Continue current antihypertensive regimen ESRD -Nephrology consulted. Diabetes mellitus -Management as per primary team. Subjective Date/time seen: 01/26/24 10:27 Interval history: Reason for visit: NSTEMI HPI: 59-year-old man with ESRD on hemodialysis, PAD status post left foot amputation, diabetes mellitus type 2 and paroxysmal atrial fibrillation on Eliquis presented from [facility] for chest pain. He is initially at the [facility] stay after his left foot amputation and was supposed to complete his rehab therapy there. Yesterday he started having chest pain at rest and the fell as of of 400 lb person was sitting on his left chest. He denies any loss of consciousness or shortness of breath. He has not been very physically active given his recent left foot amputation however he has been working with physical therapy and trying to learn how to utilize is wheelchair and did not experience any chest pain with this level of exertion. 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 Date of service 01/25: [facility] today. No chest pain currently. Review of Systems Review of Systems: All systems reviewed & are unremarkable except as noted in HPI and below (HPI) Exam Const: General: no acute distress HENMT: Mouth: Yes moist mucous membranes Eyes: General: appearance normal, both eyes and all related structures Sclera: sclerae normal Resp: Effort & Inspection: normal respiratory effort Cardio: Rate: regular rate Rhythm: regular rhythm Extrem: Other: Left lower extremity amputation Psych: Mental Status: mental status grossly normal Affect: normal affect Objective Data Vital Signs Vital Signs: Vital Signs - 24 hr 01/25/24 12:00 01/25/24 12:00 01/25/24 12:00 Temperature 36.7 C Pulse Rate 119 H 118 H Respiratory Rate 20 Blood Pressure 138/88 Pulse Oximetry 94 Oxygen Delivery Room Air 01/25/24 14:00 01/25/24 16:00 01/25/24 16:00 Temperature Pulse Rate 115 H 71 Respiratory Rate Blood Pressure Pulse Oximetry Oxygen Delivery Room Air 01/25/24 16:00 01/25/24 18:00 01/25/24 20:00 Temperature 36.4 C Pulse Rate 113 H 71 71 Respiratory Rate 22 H 22 H Blood Pressure 136/92 H Pulse Oximetry 98 98 Oxygen Delivery Room Air 01/25/24 20:27 01/25/24 20:19 01/25/24 20:00 Temperature 36.6 C Pulse Rate 117 H 117 H 116 H Respiratory Rate 22 H Blood Pressure 118/67 Pulse Oximetry 98 Oxygen Delivery 01/25/24 21:52 01/25/24 23:50 01/26/24 00:03 Temperature 37.1 C Pulse Rate 115 H 115 H 73 Respiratory Rate 22 H 22 H Blood Pressure 105/63 Pulse Oximetry 98 100 Oxygen Delivery Room Air 01/26/24 00:00 01/26/24 02:00 01/26/24 04:11 Temperature 36.5 C Pulse Rate 89 73 80 Respiratory Rate 22 H Blood Pressure 116/64 Pulse Oximetry 97 Oxygen Delivery 01/26/24 04:00 01/26/24 04:00 01/25/24 22:32 Temperature Pulse Rate 80 117 H Respiratory Rate 22 H Blood Pressure Pulse Oximetry 97 98 Oxygen Delivery Room Air Room Air 01/26/24 06:00 01/26/24 08:00 01/26/24 09:12 Temperature 36.9 C Pulse Rate 74 76 71 Respiratory Rate 18 Blood Pressure 116/70 Pulse Oximetry 98 Oxygen Delivery 01/26/24 08:00 Temperature Pulse Rate 76 Respiratory Rate Blood Pressure Pulse Oximetry Oxygen Delivery Intake/Output Intake/Output: Intake & Output 01/23/24 01/24/24 01/25/24 01/26/24 23:59 23:59 23:59 23:59 Intake Total 1494.3 734.0 Output Total 1300 500 Balance 194.3 234.0 Meds/Results Medications: Active Medications Generic Name Dose Route Start Last Admin Trade Name Freq PRN Reason Stop Dose Admin Acetaminophen 1,000 mg 01/25/24 05:30 Acetaminophen 500 Mg Tablet PO Q6H PRN Mild Pain (1-3) or Fever Amlodipine Besylate 5 mg 01/25/24 09:00 01/26/24 09:12 Amlodipine Besylate 5 Mg Tablet PO 5 mg DAILY JASWANT Administration Apixaban 5 mg 01/25/24 09:00 Apixaban 5 Mg Tablet PO Q12HR JASWANT Aspirin 81 mg 01/26/24 09:00 01/26/24 09:13 Aspirin 81 Mg Enteric Tablet PO 81 mg QAM JASWANT Administration Bisacodyl 10 mg 01/25/24 05:23 Bisacodyl 10 Mg Suppository RECTAL DAILY PRN Constipation Bumetanide 2 mg 01/25/24 09:00 01/26/24 09:13 Bumetanide 1 Mg Tablet PO 2 mg BID JASWANT Administration Ceftriaxone Sodium 2 gm 01/25/24 09:00 01/26/24 08:57 Ceftriaxone 2 Gm/Ns 100 Ml Bag IVPB 02/24/24 08:59 2 gm DAILY JASWANT Administration Dextrose 12.5 gm 01/25/24 08:38 Dextrose 50% 25 Gm/50 Ml Syringe IV PUSH PRN PRN Hypoglycemia Protocol Empagliflozin 25 mg 01/25/24 09:00 01/26/24 09:13 Empagliflozin 25 Mg Tablet PO 02/24/24 08:59 25 mg DAILY JASWANT Administration Epoetin Denilson-epbx 10,000 units 01/26/24 20:00 Epoetin Denilson-Epbx 10,000 Units/Ml Vial IV PUSH 01/26/24 20:01 ONCE ONE Ferrous Sulfate 325 mg 01/25/24 09:00 01/26/24 09:12 Ferrous Sulfate [address] PO 02/24/24 08:59 325 mg DAILY JASWANT Administration Glucagon 1 mg 01/25/24 08:38 Glucagon For Inj 1 Mg Vial IM PRN PRN Hypoglycemia Protocol Glucose 15 gm 01/25/24 08:38 Glucose Oral Gel 15 Gm Of Glucse In 37.5 Gm Tube PO PRN PRN Hypoglycemia Protocol Heparin Sodium (Porcine) 4,000 units 01/25/24 06:25 01/25/24 14:50 Heparin Sodium 5,000 Units/Ml Vial IV PUSH 4,000 units PRN PRN Administration aPTT less than 55 seconds Heparin Sodium (Porcine) 3,500 units 01/25/24 06:25 01/26/24 04:37 Heparin Sodium 5,000 Units/Ml Vial IV PUSH 3,500 units PRN PRN Administration aPTT 55 - 70 seconds Heparin Sodium/Dextrose 25,000 units in 250 mls @ 16 mls/hr 01/25/24 06:25 01/26/24 04:36 Heparin Sodium/D5w 100 Units/Ml IV CONT 1,600 units/hr .[id number] JASWANT 16 mls/hr Titration Protocol 1,600 UNITS/HR Dextrose 1,000 mls @ 100 mls/hr 01/25/24 08:38 Dextrose 5% 1,000 Ml IVPB PRN PRN Hypoglycemia Protocol Albumin Human 50 mls @ 999 mls/hr 01/26/24 07:10 Albutein IVPB 02/25/24 07:09 Q10M PRN HYPOTENSION Insulin Aspart 3 - 6 units 01/25/24 08:40 01/26/24 08:13 Insulin Aspart (*Bkc) 100 Units/Ml SUB-Q Not Given TIDWM [facility] Protocol Insulin Glargine 20 units 01/25/24 09:00 01/25/24 08:28 Insulin Glargine (*Bkc) 100 Units/Ml SUB-Q 02/24/24 08:59 20 units DAILY JASWANT Administration Metoprolol Tartrate 100 mg 01/25/24 21:00 01/26/24 09:12 Metoprolol Tartrate 50 Mg Tab PO 100 mg Q12HR JASWANT Administration Morphine Sulfate 2 mg 01/25/24 01:53 Morphine Sulfate (*Crx) 2 Mg/Ml Inj IV PUSH Q2H PRN Pain Rated 7-10 Nitroglycerin 0.4 mg 01/25/24 12:44 Nitroglycerin Sl 0.4 Mg Tablet SUBLINGUAL Q5MIN PRN Chest Pain Olanzapine 5 mg 01/25/24 05:23 Olanzapine 5 Mg Tablet PO Q6H PRN Anxiety Ondansetron HCl 4 mg 01/25/24 01:53 Ondansetron Inj 4 Mg/2 Ml Vial IV PUSH Q4H PRN Nausea Pantoprazole Sodium 40 mg 01/25/24 09:00 01/26/24 09:12 Pantoprazole 40 Mg Tablet PO 40 mg QAM JASWANT Administration Polyethylene Glycol 17 gm 01/25/24 05:23 Polyethylene Glycol 3350 17 Gm Powd.Pack PO DAILY PRN Constipation Rosuvastatin Calcium 40 mg 01/25/24 09:00 01/26/24 09:13 Rosuvastatin 20 Mg Tablet PO 40 mg DAILY JASWANT Administration Sacubitril/Valsartan 1 tab 01/25/24 09:00 01/26/24 09:24 Sacubitril/Valsartan 24-26 Mg Tablet PO 1 tab Q12HR JASWANT Administration Sevelamer Carbonate 1,600 mg 01/25/24 08:00 01/26/24 08:18 Sevelamer Carbonate 800 Mg Tablet PO Not Given TIDWM JASWANT Sodium Chloride 10 ml 01/26/24 14:00 Saline Lock Flush IV PUSH Q8HR JASWANT Sodium Chloride 10 ml 01/26/24 06:34 Saline Lock Flush IV PUSH PRN PRN Flush Sodium Chloride 20 ml 01/26/24 06:34 Saline Lock Flush IV PUSH PRN PRN after blood draws Sodium Polystyrene Sulfonate 15 gm 01/25/24 09:00 01/25/24 08:37 Sodium Polystyrene Sulfononate 15 Gm/60 Ml Btl PO Not Given DAILY [facility] Tamsulosin HCl 0.4 mg 01/25/24 21:00 01/25/24 20:18 Tamsulosin Hcl 0.4 Mg Capsule PO 0.4 mg HS JASWANT Administration Radiology Results: ITS Impressions Chest X-Ray 01/24/24 21:45 IMPRESSION: Mild pulmonary vascular congestion with small bilateral pleural effusions, as detailed above. Labs Labs: Laboratory Results - last 24 hr 01/25/24 01/25/24 01/25/24 11:34 14:15 15:59 WBC RBC Hgb Hct MCV MCH MCHC RDW Plt Count MPV Immature Gran % (Auto) Neut % (Auto) Lymph % (Auto) Rains % (Auto) Eos % (Auto) Baso % (Auto) Lymph # (Auto) Rains # (Auto) Eos # (Auto) Baso # (Auto) Abs Immat Gran (auto) Absolute Neuts (auto) Absolute Nucleated RBC Nucleated RBC % APTT 47.4 H Sodium Potassium Chloride Carbon Dioxide Anion Gap BUN Creatinine Estim Creat Clear Calc Estimated GFR Glucose POC Capillary Glucose 239 H 150 H Calcium Total Bilirubin AST ALT Alkaline Phosphatase Total Protein Albumin Hep Bs Antigen Hep Bs Antibody 01/25/24 01/25/24 01/26/24 20:22 21:28 04:03 WBC 7.4 RBC 2.70 L Hgb 7.7 L Hct 24.6 L MCV 91.1 MCH 28.5 MCHC 31.3 L RDW 15.8 H Plt Count 175 MPV 9.1 Immature Gran % (Auto) 0.9 H Neut % (Auto) 76.1 H Lymph % (Auto) 11.2 L Rains % (Auto) 8.4 Eos % (Auto) 3.1 Baso % (Auto) 0.3 Lymph # (Auto) 0.83 L Rains # (Auto) 0.6 Eos # (Auto) 0.2 Baso # (Auto) 0.0 Abs Immat Gran (auto) 0.07 H Absolute Neuts (auto) 5.6 Absolute Nucleated RBC 0.000 Nucleated RBC % 0.0 APTT 73.0 H 67.1 H Sodium 137 Potassium 4.0 Chloride 99 Carbon Dioxide 32 H Anion Gap 6 BUN 23 H Creatinine 5.20 H Estim Creat Clear Calc 18 Estimated GFR 11 L Glucose 181 H POC Capillary Glucose 224 H Calcium 8.4 Total Bilirubin 0.3 AST 21 ALT 9 Alkaline Phosphatase 71 Total Protein 6.0 L Albumin 2.8 L Hep Bs Antigen Negative Hep Bs Antibody Negative 01/26/24 07:39 WBC RBC Hgb Hct MCV MCH MCHC RDW Plt Count MPV Immature Gran % (Auto) Neut % (Auto) Lymph % (Auto) Rains % (Auto) Eos % (Auto) Baso % (Auto) Lymph # (Auto) Rains # (Auto) Eos # (Auto) Baso # (Auto) Abs Immat Gran (auto) Absolute Neuts (auto) Absolute Nucleated RBC Nucleated RBC % APTT Sodium Potassium Chloride Carbon Dioxide Anion Gap BUN Creatinine Estim Creat Clear Calc Estimated GFR Glucose POC Capillary Glucose 202 H Calcium Total Bilirubin AST ALT Alkaline Phosphatase Total Protein Albumin Hep Bs Antigen Hep Bs Antibody
--- NOTE | 2024-01-26 11:19 | P.PCNCC_ITS ---
Cardiac Cath Procedure Note Date of procedure:: 01/26/24 Performing physician:: CATHETERIZATION LABORATORY REPORT Procedure Date: 01/26/2024 Leaflet Distributor: Nadiya Castillo M.D., [facility]? Referring Physician: Phani Méndez M.D. ? Anesthesia: Versed and Fentanyl were ordered and given in my presence at 10:44, procedure e nded at 11:07. Supervision of nurse monitored moderate sedation with Versed and Fentanyl was provided for 23 minutes. Total of Versed 1mg and Fentanyl 50mcg were administered by the Technical Trainer RN Wyatt Garcia. Pre-op Diagnosis: NSTEMI Post-op Diagnosis: 1. Multivessel coronary artery disease 2. Elevated left ventricular end-diastolic pressure of 31mmHg Procedure(s): 1. Moderate sedation 2. Ultrasound-guided access of the right common femoral artery 3. Coronary angiography 4. Left heart cath 5. Angioseal closure of the right common femoral artery Access Site: Right common femoral artery Brief History and Clinical Indications: Patient is a 59 year old male with CAD s/p prior stents, PAD s/p recent left lower extremity amputation, ESRD on hemodialysis, hypertension, hyperlipidemia, diabetes mellitus who is referred for [facility] for NSTEMI. All risks, benefits and alternatives to left heart catheterization with or without percutaneous coronary intervention was discussed at length with the patient. Risk of complications including but not limited to bleeding, infection, arrhythmia, stroke, worsening kidney function, blood loss, groin hematoma, limb loss, emergency coronary artery bypass grafting, and even were discussed with the patient and all questions were answered. The patient understood and wished to proceed. Time out called, patient name, date of , medical record number, allergies, procedure performed, identify Leaflet Distributor, patient and staff member concurred with accurate data, procedure carried on. Findings: LEFT HEART CATHETERIZATION FINDINGS: 1. Left main: The left main coronary artery is widely patent without any significant obstructive disease. 2. Left anterior descending: Prior stents visualized in the mid LAD. The LAD is completely occluded at the distal edge of the stent. 3. Ramus: There is a Ramus branch with significant disease in the proximal portion. The Ramus is a small caliber vessel. 3. Left circumflex: The LCX is the dominant vessel. The proximal-mid LCX has an 80% stenosis. The mid portion has mild diffuse disease. There are 2 occluded OM branches that have retrograde filling from [id number] collaterals. The left PDA has an 80-90% stenosis. 4. Right coronary artery: The RCA is the non-dominant RCA. The RCA is a small caliber vessel. The mid portion has a 90-99% stenosis followed by an 80% stenosis. 5. Left ventricle: A. End-diastolic pressure 31 mmHg. B. LV gram deferred. C. No significant gradient across aortic valve on catheter pullback. Description of Procedure: Informed consent signed and placed in the chart. Patient transferred to medical lab tech instructor room. Prepped and draped in usual sterile fashion. 2% lidocaine in right groin area. Micropuncture needle used to access right common femoral artery with Seldinger technique under fluoroscopic and ultrasound guidance. J wire advanced, micropuncture cannula placed. Right iliofemoral angiogram performed, access confirmed and micropuncture cannula exchanged for 5-FR sheath. 5F FL 4 diagnostic catheter engaged Left Main Coronary Artery. 5F FR 4 diagnostic catheter engaged Right Coronary Artery. Multiple orthogonal angiogram obtained and reviewed 5F Pigtail diagnostic catheter crossed aortic valve to obtain LVEDP, LV angiogram deferred. Hemostasis was achieved by 6F Angioseal. Disposition: Floor Plan: The patient will be monitored in the recovery area. Given MVCAD, recommend transfer to tertiary center for CT Surgery evaluation for consideration of surgical revacularization. Continue aggressive medical therapy and risk factor modification. ? Nadiya Castillo M.D. Interventional Cardiology
[2024-01-26 13:01] LABS: Glucose Point of Care 192 mg/dl (65-105)
--- NOTE | 2024-01-26 13:53 | PM.IMPN ---
Progress Note: A&P Assessment and Plan (1) Chest pain: Qualifiers: Chest pain type: unspecified Qualified Code(s): R07.9 - Chest pain, unspecified Code(s): R07.9 - Chest pain, unspecified Status: Acute Assessment and Plan: Admit to IMU EKG with atrial fibrillation Cardiology consult Elevated troponins (2) Atrial fibrillation with RVR: Code(s): I48.91 - Unspecified atrial fibrillation Status: Acute Assessment and Plan: Rate controlled and anticoagulated (3) Chronic kidney disease (CKD) stage G5/A1, glomerular filtration rate (GFR) less than or equal to 15 mL/min/1.73 square meter and albuminuria creatinine ratio less than 30 mg/g: Code(s): N18.5 - Chronic kidney disease, stage 5 Status: Acute Assessment and Plan: Currently on dialysis Nephrology consult (4) Amputation of left foot: Code(s): S98.912A - Complete traumatic amputation of left foot, level unspecified, initial encounter Status: Acute Assessment and Plan: Local care (5) Insulin dependent diabetes mellitus: Status: Acute Assessment and Plan: Continue insulin Holding metformin Holding glipizide (6) Peripheral autonomic neuropathy due to diabetes mellitus: Code(s): E11.43 - Type 2 diabetes mellitus with diabetic autonomic (poly)neuropathy Status: Acute Assessment and Plan: Status post left foot amputation (7) Coronary artery disease: Code(s): I25.10 - Atherosclerotic heart disease of [place] coronary artery without angina pectoris Status: Acute Assessment and Plan: Continue Entresto Plan Non ST elevation [place] -underwent CATH. Multivessel disease -transfer to [facility] 01/24? -Rosuvastatin 40 mg, and add aspirin 81 mg to his regimen -Cardiology switched his Lopressor 100 mg daily to b.i.d. and recommend weaning him off diltiazem drip -continue heparin drip and give sublingual nitro if needed -Echocardiogram Left ventricular systolic function is mildly reduced, estimated at 45-50%. -Denies any illicit drug use -Reviewed EKG and CXR STAGE 5 CKD -dialysis PAD status post left foot amputation -reportedly had balloon angioplasty of left leg vessels -he will need surveillance SUSANA and ultrasound Doppler at some point this month Paroxysmal atrial fibrillation -continue holding Eliquis -heparin drip -Lopressor 100 mg b.i.d. -wean off diltiazem Hypertension -blood pressure at goal of less than 140 -continue amlodipine 5 mg p.o. daily Subjective Date/time seen: 01/26/24 13:53 Interval history: Patient went to cardiac catheterization and has multiple vessel disease. Cardiology wants to transfer the patient to the tertiary care center. Patient is accepted at [place] Review of Systems Review of Systems: Chest pain, status post left foot amputation Exam Narrative: Laying in a stretcher Const: General: comfortable, no acute distress, well developed, alert, awake and average body habitus Nutritional Appearance: average body habitus Orientation/consciousness: patient oriented x3 HENMT: Head: normal to inspection, normocephalic and atraumatic Ears: hearing grossly normal bilaterally Face/Nose/Sinus: normal facial exam Face and sinus: normal facial exam Eyes: General: appearance normal, both eyes and all related structures Pupils: Equal, round and reactive pupils present EOM: EOMs intact bilaterally Neck: Neck: full ROM, no lymphadenopathy and no JVD Thyroid: thyroid normal Lymphatic: no lymphadenopathy noted Chest: Other: Right subclavian dialysis catheter Resp: Effort & Inspection: normal respiratory effort and able to speak in complete sentences Auscultation: clear to auscultation bilaterally Cardio: Jugular venous distension: no JVD Rate: regular rate Rhythm: regular rhythm Heart sounds: S1 normal heart sound present and S2 normal heart sound present : General: Yes deferred Skin: General skin exam: amputation site Rashes: no rashes Wounds: amputation site left foot without odor Neuro: General: patient oriented x3, CN's II-XI intact bilaterally and Unable to assess gait Cranial nerves: Yes CN's II-XII intact bilaterally and Yes Equal, round and reactive pupils present Cognition (Neuro): normal cognition Speech: normal speech Gait exam (Neuro): Unable to assess gait Motor exam (neuro): 5/5 motor strength present throughout Extrem: General: normal to inspection, full ROM, no joint enlargement and no pedal edema Left lower extremity: foot Details: other (Amputation) Objective Data Vital Signs Vital Signs: Vital Signs - 24 hr 01/25/24 14:00 01/25/24 16:00 01/25/24 16:00 Temperature Pulse Rate 115 H 71 Pulse Rate [Right Pedal (Dorsalis Pedis) Palpation] Respiratory Rate Blood Pressure Pulse Oximetry Oxygen Delivery Room Air Oxygen Flow Rate 01/25/24 16:00 01/25/24 18:00 01/25/24 20:00 Temperature 97.6 F Pulse Rate 113 H 71 71 Pulse Rate [Right Pedal (Dorsalis Pedis) Palpation] Respiratory Rate 22 H 22 H Blood Pressure 136/92 H Pulse Oximetry 98 98 Oxygen Delivery Room Air Oxygen Flow Rate 01/25/24 20:27 01/25/24 20:19 01/25/24 20:00 Temperature 97.9 F Pulse Rate 117 H 117 H 116 H Pulse Rate [Right Pedal (Dorsalis Pedis) Palpation] Respiratory Rate 22 H Blood Pressure 118/67 Pulse Oximetry 98 Oxygen Delivery Oxygen Flow Rate 01/25/24 21:52 01/25/24 23:50 01/26/24 00:03 Temperature 98.7 F Pulse Rate 115 H 115 H 73 Pulse Rate [Right Pedal (Dorsalis Pedis) Palpation] Respiratory Rate 22 H 22 H Blood Pressure 105/63 Pulse Oximetry 98 100 Oxygen Delivery Room Air Oxygen Flow Rate 01/26/24 00:00 01/26/24 02:00 01/26/24 04:11 Temperature 97.7 F Pulse Rate 89 73 80 Pulse Rate [Right Pedal (Dorsalis Pedis) Palpation] Respiratory Rate 22 H Blood Pressure 116/64 Pulse Oximetry 97 Oxygen Delivery Oxygen Flow Rate 01/26/24 04:00 01/26/24 04:00 01/25/24 22:32 Temperature Pulse Rate 80 117 H Pulse Rate [Right Pedal (Dorsalis Pedis) Palpation] Respiratory Rate 22 H Blood Pressure Pulse Oximetry 97 98 Oxygen Delivery Room Air Room Air Oxygen Flow Rate 01/26/24 06:00 01/26/24 08:00 01/26/24 09:12 Temperature 98.5 F Pulse Rate 74 76 71 Pulse Rate [Right Pedal (Dorsalis Pedis) Palpation] Respiratory Rate 18 Blood Pressure 116/70 Pulse Oximetry 98 Oxygen Delivery Oxygen Flow Rate 01/26/24 08:00 01/26/24 10:00 01/26/24 11:30 Temperature Pulse Rate 76 78 77 Pulse Rate [Right Pedal (Dorsalis Pedis) Palpation] Respiratory Rate 13 Blood Pressure 126/84 Pulse Oximetry 96 Oxygen Delivery Room Air Oxygen Flow Rate 01/26/24 11:30 01/26/24 11:45 01/26/24 11:45 Temperature Pulse Rate 115 H Pulse Rate [Right Pedal (Dorsalis Pedis) Palpation] 77 116 H Respiratory Rate 12 Blood Pressure 131/88 Pulse Oximetry 99 Oxygen Delivery Nasal Cannula Oxygen Flow Rate 2 01/26/24 12:00 01/26/24 12:00 01/26/24 12:15 Temperature Pulse Rate 113 H Pulse Rate [Right Pedal (Dorsalis Pedis) Palpation] 114 H 113 H Respiratory Rate 16 Blood Pressure 133/99 H Pulse Oximetry 98 Oxygen Delivery Nasal Cannula Oxygen Flow Rate 2 01/26/24 12:15 01/26/24 13:30 Temperature Pulse Rate 113 H 72 Pulse Rate [Right Pedal (Dorsalis Pedis) Palpation] Respiratory Rate 12 Blood Pressure 140/95 H Pulse Oximetry 98 Oxygen Delivery Nasal Cannula Oxygen Flow Rate 2 Intake/Output Intake/Output: Intake & Output 01/23/24 01/24/24 01/25/24 01/26/24 23:59 23:59 23:59 23:59 Intake Total 1494.3 734.0 Output Total 1300 500 Balance 194.3 234.0 Meds/Results Medications: Active Medications Generic Name Dose Route Start Last Admin Trade Name Freq PRN Reason Stop Dose Admin Acetaminophen 1,000 mg 01/25/24 05:30 Acetaminophen 500 Mg Tablet PO Q6H PRN Mild Pain (1-3) or Fever Amlodipine Besylate 5 mg 01/25/24 09:00 01/26/24 09:12 Amlodipine Besylate 5 Mg Tablet PO 5 mg DAILY JASWANT Administration Apixaban 5 mg 01/25/24 09:00 Apixaban 5 Mg Tablet PO Q12HR JASWANT Aspirin 81 mg 01/26/24 09:00 01/26/24 09:13 Aspirin 81 Mg Enteric Tablet PO 81 mg QAM JASWANT Administration Bisacodyl 10 mg 01/25/24 05:23 Bisacodyl 10 Mg Suppository RECTAL DAILY PRN Constipation Bumetanide 2 mg 01/25/24 09:00 01/26/24 09:13 Bumetanide 1 Mg Tablet PO 2 mg BID JASWANT Administration Ceftriaxone Sodium 2 gm 01/25/24 09:00 01/26/24 08:57 Ceftriaxone 2 Gm/Ns 100 Ml Bag IVPB 02/24/24 08:59 2 gm DAILY JASWANT Administration Dextrose 12.5 gm 01/25/24 08:38 Dextrose 50% 25 Gm/50 Ml Syringe IV PUSH PRN PRN Hypoglycemia Protocol Empagliflozin 25 mg 01/25/24 09:00 01/26/24 09:13 Empagliflozin 25 Mg Tablet PO 02/24/24 08:59 25 mg DAILY JASWANT Administration Epoetin Denilson-epbx 10,000 units 01/26/24 20:00 Epoetin Denilson-Epbx 10,000 Units/Ml Vial IV PUSH 01/26/24 20:01 ONCE ONE Ferrous Sulfate 325 mg 01/25/24 09:00 01/26/24 09:12 Ferrous Sulfate [address] PO 02/24/24 08:59 325 mg DAILY JASWANT Administration Glucagon 1 mg 01/25/24 08:38 Glucagon For Inj 1 Mg Vial IM PRN PRN Hypoglycemia Protocol Glucose 15 gm 01/25/24 08:38 Glucose Oral Gel 15 Gm Of Glucse In 37.5 Gm Tube PO PRN PRN Hypoglycemia Protocol Heparin Sodium (Porcine) 4,000 units 01/25/24 06:25 01/25/24 14:50 Heparin Sodium 5,000 Units/Ml Vial IV PUSH 4,000 units PRN PRN Administration aPTT less than 55 seconds Heparin Sodium (Porcine) 3,500 units 01/25/24 06:25 01/26/24 04:37 Heparin Sodium 5,000 Units/Ml Vial IV PUSH 3,500 units PRN PRN Administration aPTT 55 - 70 seconds Heparin Sodium/Dextrose 25,000 units in 250 mls @ 16 mls/hr 01/25/24 06:25 01/26/24 04:36 Heparin Sodium/D5w 100 Units/Ml IV CONT 1,600 units/hr .[id number] JASWANT 16 mls/hr Titration Protocol 1,600 UNITS/HR Dextrose 1,000 mls @ 100 mls/hr 01/25/24 08:38 Dextrose 5% 1,000 Ml IVPB PRN PRN Hypoglycemia Protocol Albumin Human 50 mls @ 999 mls/hr 01/26/24 07:10 Albutein IVPB 02/25/24 07:09 Q10M PRN HYPOTENSION Insulin Aspart 3 - 6 units 01/25/24 08:40 01/26/24 13:52 Insulin Aspart (*Bkc) 100 Units/Ml SUB-Q Not Given TIDWM [facility] Protocol Insulin Glargine 20 units 01/25/24 09:00 01/26/24 13:52 Insulin Glargine (*Bkc) 100 Units/Ml SUB-Q 02/24/24 08:59 Not Given DAILY [facility] Metoprolol Tartrate 100 mg 01/25/24 21:00 01/26/24 09:12 Metoprolol Tartrate 50 Mg Tab PO 100 mg Q12HR JASWANT Administration Morphine Sulfate 2 mg 01/25/24 01:53 Morphine Sulfate (*Crx) 2 Mg/Ml Inj IV PUSH Q2H PRN Pain Rated 7-10 Nitroglycerin 0.4 mg 01/25/24 12:44 Nitroglycerin Sl 0.4 Mg Tablet SUBLINGUAL Q5MIN PRN Chest Pain Olanzapine 5 mg 01/25/24 05:23 Olanzapine 5 Mg Tablet PO Q6H PRN Anxiety Ondansetron HCl 4 mg 01/25/24 01:53 Ondansetron Inj 4 Mg/2 Ml Vial IV PUSH Q4H PRN Nausea Pantoprazole Sodium 40 mg 01/25/24 09:00 01/26/24 09:12 Pantoprazole 40 Mg Tablet PO 40 mg QAM JASWANT Administration Polyethylene Glycol 17 gm 01/25/24 05:23 Polyethylene Glycol 3350 17 Gm Powd.Pack PO DAILY PRN Constipation Rosuvastatin Calcium 40 mg 01/25/24 09:00 01/26/24 09:13 Rosuvastatin 20 Mg Tablet PO 40 mg DAILY JASWANT Administration Sacubitril/Valsartan 1 tab 01/25/24 09:00 01/26/24 09:24 Sacubitril/Valsartan 24-26 Mg Tablet PO 1 tab Q12HR JASWANT Administration Sevelamer Carbonate 1,600 mg 01/25/24 08:00 01/26/24 08:18 Sevelamer Carbonate 800 Mg Tablet PO Not Given TIDWM JASWANT Sodium Chloride 10 ml 01/26/24 14:00 Saline Lock Flush IV PUSH Q8HR JASWANT Sodium Chloride 10 ml 01/26/24 06:34 Saline Lock Flush IV PUSH PRN PRN Flush Sodium Chloride 20 ml 01/26/24 06:34 Saline Lock Flush IV PUSH PRN PRN after blood draws Sodium Polystyrene Sulfonate 15 gm 01/25/24 09:00 01/26/24 13:52 Sodium Polystyrene Sulfononate 15 Gm/60 Ml Btl PO Not Given DAILY [facility] Tamsulosin HCl 0.4 mg 01/25/24 21:00 01/25/24 20:18 Tamsulosin Hcl 0.4 Mg Capsule PO 0.4 mg HS JASWANT Administration Radiology Results: ITS Impressions Chest X-Ray 01/24/24 21:45 IMPRESSION: Mild pulmonary vascular congestion with small bilateral pleural effusions, as detailed above. Labs Labs: Laboratory Results - last 24 hr 01/25/24 01/25/24 01/25/24 11:34 14:15 15:59 WBC RBC Hgb Hct MCV MCH MCHC RDW Plt Count MPV Immature Gran % (Auto) Neut % (Auto) Lymph % (Auto) [place] % (Auto) Eos % (Auto) Baso % (Auto) Lymph # (Auto) [place] # (Auto) Eos # (Auto) Baso # (Auto) Abs Immat Gran (auto) Absolute Neuts (auto) Absolute Nucleated RBC Nucleated RBC % APTT 47.4 H Sodium Potassium Chloride Carbon Dioxide Anion Gap BUN Creatinine Estim Creat Clear Calc Estimated GFR Glucose POC Capillary Glucose 239 H 150 H Calcium Total Bilirubin AST ALT Alkaline Phosphatase Total Protein Albumin Hep Bs Antigen Hep Bs Antibody 01/25/24 01/25/24 01/26/24 20:22 21:28 04:03 WBC 7.4 RBC 2.70 L Hgb 7.7 L Hct 24.6 L MCV 91.1 MCH 28.5 MCHC 31.3 L RDW 15.8 H Plt Count 175 MPV 9.1 Immature Gran % (Auto) 0.9 H Neut % (Auto) 76.1 H Lymph % (Auto) 11.2 L [place] % (Auto) 8.4 Eos % (Auto) 3.1 Baso % (Auto) 0.3 Lymph # (Auto) 0.83 L [place] # (Auto) 0.6 Eos # (Auto) 0.2 Baso # (Auto) 0.0 Abs Immat Gran (auto) 0.07 H Absolute Neuts (auto) 5.6 Absolute Nucleated RBC 0.000 Nucleated RBC % 0.0 APTT 73.0 H 67.1 H Sodium 137 Potassium 4.0 Chloride 99 Carbon Dioxide 32 H Anion Gap 6 BUN 23 H Creatinine 5.20 H Estim Creat Clear Calc 18 Estimated GFR 11 L Glucose 181 H POC Capillary Glucose 224 H Calcium 8.4 Total Bilirubin 0.3 AST 21 ALT 9 Alkaline Phosphatase 71 Total Protein 6.0 L Albumin 2.8 L Hep Bs Antigen Negative Hep Bs Antibody Negative 01/26/24 01/26/24 07:39 12:50 WBC RBC Hgb Hct MCV MCH MCHC RDW Plt Count MPV Immature Gran % (Auto) Neut % (Auto) Lymph % (Auto) [place] % (Auto) Eos % (Auto) Baso % (Auto) Lymph # (Auto) [place] # (Auto) Eos # (Auto) Baso # (Auto) Abs Immat Gran (auto) Absolute Neuts (auto) Absolute Nucleated RBC Nucleated RBC % APTT Sodium Potassium Chloride Carbon Dioxide Anion Gap BUN Creatinine Estim Creat Clear Calc Estimated GFR Glucose POC Capillary Glucose 202 H 192 H Calcium Total Bilirubin AST ALT Alkaline Phosphatase Total Protein Albumin Hep Bs Antigen Hep Bs Antibody
--- NOTE | 2024-01-26 14:25 | P.PNNP_ITS ---
Progress Note: A&P Assessment and Plan (1) Acute renal failure on dialysis: Code(s): N17.9 - Acute kidney failure, unspecified; Z99.2 - Dependence on renal dialysis Status: Acute Assessment and Plan: * due to ATN from sepsis from hospitalization in December 2023 (Kylee Bryan) * apparently did have some underlying CKD prior to that hospitalization * HD today * continue M/W/F dialysis schedule * follow electrolytes, volume status, and clearance * follow repeat labs and UOP to assess for potential renal recovery (2) NSTEMI (non-ST elevated myocardial infarction): Code(s): I21.4 - Non-ST elevation (NSTEMI) myocardial infarction Status: Acute Assessment and Plan: * as noted by admission criteria * s/p cardiac cath earlier today with noted multivessel CAD * noted plan for transfer for CABG evaluation * Cardiology following * continue medical therapy (3) Atrial fibrillation with RVR: Code(s): I48.91 - Unspecified atrial fibrillation Status: Acute Assessment and Plan: * present on admission * weaned off diltiazm gtt * rate control strategy * resume anticoagulation when appropriate (4) Anemia: Code(s): D64.9 - Anemia, unspecified Status: Acute Assessment and Plan: * related to [place]/CKD and acute illness * MONTSE with dialysis * follow trend of H/H (5) Hypertension: Code(s): I10 - Essential (primary) hypertension Status: Chronic Assessment and Plan: * reasonable control at this time * follow trend of hemodynamics (6) Insulin dependent diabetes mellitus: Status: Chronic Assessment and Plan: * follow accu-cheks * glycemic control per hospitalist Will continue to follow. Subjective Date/time seen: 01/26/24 14:25 Interval history: Follow-up for acute kidney injury on chronic kidney disease requiring [employer] PILOT/dialysis. Tolerating dialysis treatment at the time of my visit (seen on HD at 2:15PM); s/p cardiac catheterization earlier today with results noted; no apparent d istress voiced when seen; is aware of plan for possible transfer for CABG evaluation. Exam Narrative: General: WD/WN male in NAD Heart: normal S1 and S2; no rub Lungs: clear to auscultation Abdomen: soft, nontender, nondistended, positive bowel sounds Extremities: no cyanosis or clubbing; no edema; s/p left foot amputation Skin: warm and dry Objective Data Vital Signs Vital Signs: Vital Signs Temp Pulse Pulse Resp BP Pulse Ox O2 Del Method 01/26/24 14:15 75 138/84 01/26/24 14:00 74 138/79 01/26/24 13:45 69 133/74 01/26/24 13:15 97.7 F 115 H 16 142/89 H 99 01/26/24 13:26 114 H 147/91 H 01/26/24 13:30 72 01/26/24 12:15 113 H 12 140/95 H 98 Nasal Cannula 01/26/24 12:15 113 H 01/26/24 12:00 114 H 01/26/24 12:00 113 H 16 133/99 H 98 Nasal Cannula 01/26/24 11:45 116 H 01/26/24 11:45 115 H 12 131/88 99 Nasal Cannula 01/26/24 11:30 77 01/26/24 11:30 77 13 126/84 96 Room Air 01/26/24 10:00 78 01/26/24 08:00 76 01/26/24 09:12 71 01/26/24 08:00 98.5 F 76 18 116/70 98 01/26/24 06:00 74 01/25/24 22:32 98 Room Air 01/26/24 04:00 117 H 01/26/24 04:00 80 22 H 97 Room Air 01/26/24 04:11 97.7 F 80 22 H 116/64 97 01/26/24 02:00 73 01/26/24 00:00 89 01/26/24 00:03 98.7 F 73 22 H 105/63 100 01/25/24 23:50 115 H 22 H 98 Room Air 01/25/24 21:52 115 H 01/25/24 20:00 116 H 01/25/24 20:19 117 H 01/25/24 20:27 97.9 F 117 H 22 H 118/67 98 01/25/24 20:00 71 22 H 98 Room Air 01/25/24 18:00 71 Intake/Output Intake/Output: Intake & Output 01/23/24 01/24/24 01/25/24 01/26/24 23:59 23:59 23:59 23:59 Intake Total 1494.3 734.0 Output Total 1300 500 Balance 194.3 234.0 Meds/Results Medications: Active Medications Generic Name Dose Route Start Last Admin Trade Name Freq PRN Reason Stop Dose Admin Acetaminophen 1,000 mg 01/25/24 05:30 Acetaminophen 500 Mg Tablet PO Q6H PRN Mild Pain (1-3) or Fever Amlodipine Besylate 5 mg 01/25/24 09:00 01/26/24 09:12 Amlodipine Besylate 5 Mg Tablet PO 5 mg DAILY JASWANT Administration Apixaban 5 mg 01/25/24 09:00 Apixaban 5 Mg Tablet PO Q12HR JASWANT Aspirin 81 mg 01/26/24 09:00 01/26/24 09:13 Aspirin 81 Mg Enteric Tablet PO 81 mg QAM JASWANT Administration Bisacodyl 10 mg 01/25/24 05:23 Bisacodyl 10 Mg Suppository RECTAL DAILY PRN Constipation Bumetanide 2 mg 01/25/24 09:00 01/26/24 09:13 Bumetanide 1 Mg Tablet PO 2 mg BID JASWANT Administration Ceftriaxone Sodium 2 gm 01/25/24 09:00 01/26/24 08:57 Ceftriaxone 2 Gm/Ns 100 Ml Bag IVPB 02/24/24 08:59 2 gm DAILY JASWANT Administration Dextrose 12.5 gm 01/25/24 08:38 Dextrose 50% 25 Gm/50 Ml Syringe IV PUSH PRN PRN Hypoglycemia Protocol Empagliflozin 25 mg 01/25/24 09:00 01/26/24 09:13 Empagliflozin 25 Mg Tablet PO 02/24/24 08:59 25 mg DAILY JASWANT Administration Epoetin Denilson-epbx 10,000 units 01/26/24 20:00 Epoetin Denilson-Epbx 10,000 Units/Ml Vial IV PUSH 01/26/24 20:01 ONCE ONE Ferrous Sulfate 325 mg 01/25/24 09:00 01/26/24 09:12 Ferrous Sulfate [address] PO 02/24/24 08:59 325 mg DAILY JASWANT Administration Glucagon 1 mg 01/25/24 08:38 Glucagon For Inj 1 Mg Vial IM PRN PRN Hypoglycemia Protocol Glucose 15 gm 01/25/24 08:38 Glucose Oral Gel 15 Gm Of Glucse In 37.5 Gm Tube PO PRN PRN Hypoglycemia Protocol Heparin Sodium (Porcine) 4,000 units 01/25/24 06:25 01/25/24 14:50 Heparin Sodium 5,000 Units/Ml Vial IV PUSH 4,000 units PRN PRN Administration aPTT less than 55 seconds Heparin Sodium (Porcine) 3,500 units 01/25/24 06:25 01/26/24 04:37 Heparin Sodium 5,000 Units/Ml Vial IV PUSH 3,500 units PRN PRN Administration aPTT 55 - 70 seconds Heparin Sodium/Dextrose 25,000 units in 250 mls @ 16 mls/hr 01/25/24 06:25 01/26/24 04:36 Heparin Sodium/D5w 100 Units/Ml IV CONT 1,600 units/hr .[id number] JASWANT 16 mls/hr Titration Protocol 1,600 UNITS/HR Dextrose 1,000 mls @ 100 mls/hr 01/25/24 08:38 Dextrose 5% 1,000 Ml IVPB PRN PRN Hypoglycemia Protocol Albumin Human 50 mls @ 999 mls/hr 01/26/24 07:10 Albutein IVPB 02/25/24 07:09 Q10M PRN HYPOTENSION Insulin Aspart 3 - 6 units 01/25/24 08:40 01/26/24 13:52 Insulin Aspart (*Bkc) 100 Units/Ml SUB-Q Not Given TIDWM [facility] Protocol Insulin Glargine 20 units 01/25/24 09:00 01/26/24 13:52 Insulin Glargine (*Bkc) 100 Units/Ml SUB-Q 02/24/24 08:59 Not Given DAILY [facility] Metoprolol Tartrate 100 mg 01/25/24 21:00 01/26/24 09:12 Metoprolol Tartrate 50 Mg Tab PO 100 mg Q12HR JASWANT Administration Morphine Sulfate 2 mg 01/25/24 01:53 Morphine Sulfate (*Crx) 2 Mg/Ml Inj IV PUSH Q2H PRN Pain Rated 7-10 Nitroglycerin 0.4 mg 01/25/24 12:44 Nitroglycerin Sl 0.4 Mg Tablet SUBLINGUAL Q5MIN PRN Chest Pain Olanzapine 5 mg 01/25/24 05:23 Olanzapine 5 Mg Tablet PO Q6H PRN Anxiety Ondansetron HCl 4 mg 01/25/24 01:53 Ondansetron Inj 4 Mg/2 Ml Vial IV PUSH Q4H PRN Nausea Pantoprazole Sodium 40 mg 01/25/24 09:00 01/26/24 09:12 Pantoprazole 40 Mg Tablet PO 40 mg QAM JASWANT Administration Polyethylene Glycol 17 gm 01/25/24 05:23 Polyethylene Glycol 3350 17 Gm Powd.Pack PO DAILY PRN Constipation Rosuvastatin Calcium 40 mg 01/25/24 09:00 01/26/24 09:13 Rosuvastatin 20 Mg Tablet PO 40 mg DAILY JASWANT Administration Sacubitril/Valsartan 1 tab 01/25/24 09:00 01/26/24 09:24 Sacubitril/Valsartan 24-26 Mg Tablet PO 1 tab Q12HR JASWANT Administration Sevelamer Carbonate 1,600 mg 01/25/24 08:00 01/26/24 13:53 Sevelamer Carbonate 800 Mg Tablet PO Not Given TIDWM JASWANT Sodium Chloride 10 ml 01/26/24 14:00 Saline Lock Flush IV PUSH Q8HR JASWANT Sodium Chloride 10 ml 01/26/24 06:34 Saline Lock Flush IV PUSH PRN PRN Flush Sodium Chloride 20 ml 01/26/24 06:34 Saline Lock Flush IV PUSH PRN PRN after blood draws Sodium Polystyrene Sulfonate 15 gm 01/25/24 09:00 01/26/24 13:52 Sodium Polystyrene Sulfononate 15 Gm/60 Ml Btl PO Not Given DAILY JASWANT Tamsulosin HCl 0.4 mg 01/25/24 21:00 01/25/24 20:18 Tamsulosin Hcl 0.4 Mg Capsule PO 0.4 mg HS JASWANT Administration Radiology Results: ITS Impressions Chest X-Ray 01/24/24 21:45 IMPRESSION: Mild pulmonary vascular congestion with small bilateral pleural effusions, as detailed above. Labs Labs: Laboratory Tests 01/26/24 04:03 01/26/24 04:03 Calcium 8.4 Total Bilirubin 0.3 AST 21 ALT 9 Alkaline Phosphatase 71 Total Protein 6.0 L Albumin 2.8 L Hep Bs Antigen Negative Hep Bs Antibody Negative Microbiology 01/25/24 07:11 Blood Blood Culture - Preliminary 01/25/24 06:38 Blood Blood Culture - Preliminary
[2024-01-26 14:53] LABS: Partial Thromboplastin Time 36.5 Seconds (22.3-36.8)
[2024-01-26 17:46] LABS: Glucose Point of Care 139 mg/dl (65-105)
[2024-01-26 19:30] LABS: Partial Thromboplastin Time 38.5 Seconds (22.3-36.8)
[2024-01-26] MEDS: HEPARIN SODIUM 1,000 UNITS/ML VIAL 4000 UNITS (20:12)
[2024-01-26] MEDS: TAMSULOSIN HCL 0.4 MG CAPSULE PO (20:13)
[2024-01-26] MEDS: SALINE LOCK FLUSH 10 ML IV PUSH (20:13)
[2024-01-26 20:47] LABS: Glucose Point of Care 232 mg/dl (65-105)
[2024-01-27] VITALS (8 sets, daily range): BP systolic 95–127; BP diastolic 61–78; PULSE 72–78; RESP 16–20; TEMP 36.6–36.8; O2SAT 99
--- NOTE | 2024-01-27 05:16 | PC.NURSE ---
01/27/24 at 0335- Brianna, RN from [facility] transfer center called with a transfer update on this patient. Per transfer center, this patient is on a high priority list, but no bed is available at this time. Pt has been accepted to [facility] for cardiothoracic surgery with a Dr. Douglas at [facility]. The transfer center will call back when a bed becomes available.
--- NOTE | 2024-01-27 05:19 | PC.NURSE ---
01/27/24 at [id number] Avalos from the [facility] transfer center called with a transfer update. Per the transfer center, this patient has been accepted to [facility] under cardiothoracic surgery with a Dr. Douglas. A bed is available at this time. The patient will be transferring to [facility] room 812-01. The nurse line for report is . Alena Gale RN (chargeback specialist) called and updated with the transfer information and bed availability.
[2024-01-27] MEDS: HEPARIN SOD/D5W 100 UNITS/ML 25,000 UNITS/250 ML BAG 16 UNITS IV CONT (06:14)
--- NOTE | 2024-01-27 06:24 | PC.NURSE ---
01/27/24 at 0610- Pt report called to KYA Culp at [facility]. Pt accepted to room 812-[address] Douglas for cardiovascular surgery.
[2024-01-27] MEDS: SALINE LOCK FLUSH 10 ML IV PUSH (06:33)
[2024-01-27 07:49] LABS: Glucose Point of Care 339 mg/dl (65-105)
[2024-01-27] MEDS: INSULIN ASPART (*BKC) 100 UNITS/ML SUB-Q (07:56)
[2024-01-27] MEDS: INSULIN GLARGINE (*BKC) 100 UNITS/ML 20 UNITS SUB-Q (07:56)
[2024-01-27] MEDS: METOPROLOL TARTRATE 50 MG TAB 100 MG PO (07:57)
[2024-01-27] MEDS: EMPAGLIFLOZIN 25 MG TABLET PO (07:57)
[2024-01-27] MEDS: ROSUVASTATIN 20 MG TABLET 40 MG PO (07:57)
[2024-01-27] MEDS: SEVELAMER CARBONATE 800 MG TABLET 1600 MG PO (07:57)
[2024-01-27] MEDS: SODIUM POLYSTYRENE SULFONONATE 15 GM/60 ML BTL PO (07:57)
[2024-01-27] MEDS: PANTOPRAZOLE 40 MG TABLET PO (07:58)
[2024-01-27] MEDS: amLODIPine BESYLATE 5 MG TABLET PO (07:58)
[2024-01-27] MEDS: BUMETANIDE 1 MG TABLET 2 MG PO (07:58)
[2024-01-27] MEDS: SACUBITRIL/VALSARTAN 24-26 MG TABLET 1 TAB PO (07:58)
[2024-01-27] MEDS: FERROUS SULFATE 325 MG TABLET DR PO (07:58)
[2024-01-27] MEDS: ASPIRIN 81 MG ENTERIC TABLET PO (07:58)
[2024-01-27] MEDS: CEFTRIAXONE IVPB (07:59)
[2024-01-27] MEDS: NS IVPB (07:59)
[2024-01-27 08:50] LABS: Hematocrit 24.6 % (42.0-52.0); Hemoglobin 7.5 g/dL (14.0-18.0); Mean Corpuscular HGB Conc 30.5 g/dl (32-36); Mean Corpuscular Hemoglobin 28.1 pg (26-34); Mean Corpuscular Volume 92.1 fl (80-100); Mean Platelet Volume 9.3 fl (7.4-10.4); Platelet Count Result 164 k/mm3 (150-375); Red Blood Count 2.67 M/mm3 (4.6-6.20); Red Cell Distribution Width 15.8 % (11.5-14.5); White Blood Count 6.3 K/mm3 (4.5-10.0)
[2024-01-27 09:12] LABS: Partial Thromboplastin Time 65.4 Seconds (22.3-36.8)
[2024-01-27 09:15] LABS: Alanine Aminotransferase 10 U/L (6-50); Albumin Level 2.9 g/dL (3.5-5.1); Alkaline Phosphatase 81 U/L (38-126); Anion Gap 5 mmol/L (4-12); Aspartate Amino Transferase 18 U/L (17-59); Bilirubin,Total 0.3 mg/dL (0.2-1.3); Blood Urea Nitrogen 17 mg/dL (9-20); Calcium 8.4 mg/dL (8.4-10.2); Carbon Dioxide 30 mmol/L (22-30); Chloride 101 mmol/L (98-107); Estimated CRCL calculation 26 ml/min; Estimated Glomerular Filt Rate 17; Glucose 370 mg/dL (65-110); Potassium 4.4 mmol/L (3.4-5.0); Sodium 136 mmol/L (137-145)
--- NOTE | 2024-01-27 09:55 | PM.IMPN ---
Progress Note: A&P Assessment and Plan (1) Chest pain: Qualifiers: Chest pain type: unspecified Qualified Code(s): R07.9 - Chest pain, unspecified Code(s): R07.9 - Chest pain, unspecified Status: Acute Assessment and Plan: Admit to IMU EKG with atrial fibrillation Cardiology consult Elevated troponins (2) Atrial fibrillation with RVR: Code(s): I48.91 - Unspecified atrial fibrillation Status: Acute Assessment and Plan: Rate controlled and anticoagulated (3) Chronic kidney disease (CKD) stage G5/A1, glomerular filtration rate (GFR) less than or equal to 15 mL/min/1.73 square meter and albuminuria creatinine ratio less than 30 mg/g: Code(s): N18.5 - Chronic kidney disease, stage 5 Status: Acute Assessment and Plan: Currently on dialysis Nephrology consult (4) Amputation of left foot: Code(s): S98.912A - Complete traumatic amputation of left foot, level unspecified, initial encounter Status: Acute Assessment and Plan: Local care (5) Insulin dependent diabetes mellitus: Status: Chronic Assessment and Plan: Continue insulin Holding metformin Holding glipizide (6) Peripheral autonomic neuropathy due to diabetes mellitus: Code(s): E11.43 - Type 2 diabetes mellitus with diabetic autonomic (poly)neuropathy Status: Acute Assessment and Plan: Status post left foot amputation (7) Coronary artery disease: Code(s): I25.10 - Atherosclerotic heart disease of [place] coronary artery without angina pectoris Status: Acute Assessment and Plan: Continue Entresto Plan Non ST elevation IN -underwent CATH. Multivessel disease -transfer to [facility] 01/24? -Rosuvastatin 40 mg, and add aspirin 81 mg to his regimen -Cardiology switched his Lopressor 100 mg daily to b.i.d. and recommend weaning him off diltiazem drip -continue heparin drip and give sublingual nitro if needed -Echocardiogram Left ventricular systolic function is mildly reduced, estimated at 45-50%. -Denies any illicit drug use -Reviewed EKG and CXR STAGE 5 CKD -dialysis PAD status post left foot amputation -reportedly had balloon angioplasty of left leg vessels -he will need surveillance SUSANA and ultrasound Doppler at some point this month Paroxysmal atrial fibrillation -continue holding Eliquis -heparin drip -Lopressor 100 mg b.i.d. -wean off diltiazem Hypertension -blood pressure at goal of less than 140 -continue amlodipine 5 mg p.o. daily Subjective Date/time seen: 01/27/24 09:55 Interval history: Underwent dialysis yesterday.s/p cardiac catheterization earlier yesterday .Transfer for CABG evaluation to [facility] possibly around 10am. Review of Systems Review of Systems: Chest pain, status post left foot amputation Exam Narrative: Laying in a stretcher Const: General: comfortable, no acute distress, well developed, alert, awake and average body habitus Nutritional Appearance: average body habitus Orientation/consciousness: patient oriented x3 HENMT: Head: normal to inspection, normocephalic and atraumatic Ears: hearing grossly normal bilaterally Face/Nose/Sinus: normal facial exam Face and sinus: normal facial exam Eyes: General: appearance normal, both eyes and all related structures Pupils: Equal, round and reactive pupils present EOM: EOMs intact bilaterally Neck: Neck: full ROM, no lymphadenopathy and no JVD Thyroid: thyroid normal Lymphatic: no lymphadenopathy noted Chest: Other: Right subclavian dialysis catheter Resp: Effort & Inspection: normal respiratory effort and able to speak in complete sentences Auscultation: clear to auscultation bilaterally Cardio: Jugular venous distension: no JVD Rate: regular rate Rhythm: regular rhythm Heart sounds: S1 normal heart sound present and S2 normal heart sound present : General: Yes deferred Skin: General skin exam: amputation site Rashes: no rashes Wounds: amputation site left foot without odor Neuro: General: patient oriented x3, CN's II-XI intact bilaterally and Unable to assess gait Cranial nerves: Yes CN's II-XII intact bilaterally and Yes Equal, round and reactive pupils present Cognition (Neuro): normal cognition Speech: normal speech Gait exam (Neuro): Unable to assess gait Motor exam (neuro): 5/5 motor strength present throughout Extrem: General: normal to inspection, full ROM, no joint enlargement and no pedal edema Left lower extremity: foot Details: other (Amputation) Objective Data Vital Signs Vital Signs: Vital Signs - 24 hr 01/26/24 10:00 01/26/24 11:30 01/26/24 11:30 Temperature Pulse Rate 78 77 Pulse Rate [Right Pedal (Dorsalis Pedis) Palpation] 77 Respiratory Rate 13 Blood Pressure 126/84 Pulse Oximetry 96 Oxygen Delivery Room Air Oxygen Flow Rate 01/26/24 11:45 01/26/24 11:45 01/26/24 12:00 Temperature Pulse Rate 115 H 113 H Pulse Rate [Right Pedal (Dorsalis Pedis) Palpation] 116 H Respiratory Rate 12 16 Blood Pressure 131/88 133/99 H Pulse Oximetry 99 98 Oxygen Delivery Nasal Cannula Nasal Cannula Oxygen Flow Rate 2 2 01/26/24 12:00 01/26/24 12:15 01/26/24 12:15 Temperature Pulse Rate 113 H Pulse Rate [Right Pedal (Dorsalis Pedis) Palpation] 114 H 113 H Respiratory Rate 12 Blood Pressure 140/95 H Pulse Oximetry 98 Oxygen Delivery Nasal Cannula Oxygen Flow Rate 2 01/26/24 13:30 01/26/24 13:26 01/26/24 13:15 Temperature 97.7 F Pulse Rate 72 114 H 115 H Pulse Rate [Right Pedal (Dorsalis Pedis) Palpation] Respiratory Rate 16 Blood Pressure 147/91 H 142/89 H Pulse Oximetry 99 Oxygen Delivery Oxygen Flow Rate 01/26/24 14:30 01/26/24 13:45 01/26/24 14:00 Temperature Pulse Rate 76 69 74 Pulse Rate [Right Pedal (Dorsalis Pedis) Palpation] Respiratory Rate Blood Pressure 133/81 133/74 138/79 Pulse Oximetry Oxygen Delivery Oxygen Flow Rate 01/26/24 14:15 01/26/24 14:45 01/26/24 15:00 Temperature Pulse Rate 75 116 H 116 H Pulse Rate [Right Pedal (Dorsalis Pedis) Palpation] Respiratory Rate Blood Pressure 138/84 144/90 H 148/97 H Pulse Oximetry Oxygen Delivery Oxygen Flow Rate 01/26/24 15:30 01/26/24 15:45 01/26/24 15:15 Temperature Pulse Rate 78 118 H 73 Pulse Rate [Right Pedal (Dorsalis Pedis) Palpation] Respiratory Rate Blood Pressure 133/70 126/85 130/73 Pulse Oximetry Oxygen Delivery Oxygen Flow Rate 01/26/24 16:00 01/26/24 16:15 01/26/24 16:30 Temperature Pulse Rate 71 75 72 Pulse Rate [Right Pedal (Dorsalis Pedis) Palpation] Respiratory Rate Blood Pressure 125/78 133/75 134/82 Pulse Oximetry Oxygen Delivery Oxygen Flow Rate 01/26/24 16:45 01/26/24 17:08 01/26/24 17:15 Temperature 97.5 F L Pulse Rate 122 H 119 H 108 H Pulse Rate [Right Pedal (Dorsalis Pedis) Palpation] Respiratory Rate 16 Blood Pressure 143/93 H 138/89 142/86 H Pulse Oximetry 96 Oxygen Delivery Oxygen Flow Rate 01/26/24 14:00 01/26/24 16:00 01/26/24 18:00 Temperature 98 F Pulse Rate 76 76 80 Pulse Rate [Right Pedal (Dorsalis Pedis) Palpation] Respiratory Rate 20 Blood Pressure 123/73 Pulse Oximetry 93 Oxygen Delivery Oxygen Flow Rate 01/26/24 19:50 01/26/24 20:13 01/26/24 20:00 Temperature 98.4 F Pulse Rate 80 120 H 119 H Pulse Rate [Right Pedal (Dorsalis Pedis) Palpation] Respiratory Rate 20 18 Blood Pressure 119/76 Pulse Oximetry 93 100 Oxygen Delivery Room Air Oxygen Flow Rate 01/26/24 20:00 01/27/24 00:00 01/26/24 22:00 Temperature 98.3 F Pulse Rate 82 75 74 Pulse Rate [Right Pedal (Dorsalis Pedis) Palpation] Respiratory Rate 16 Blood Pressure 95/61 L Pulse Oximetry 99 Oxygen Delivery Oxygen Flow Rate 01/26/24 23:55 01/27/24 00:00 01/27/24 02:00 Temperature Pulse Rate 75 73 74 Pulse Rate [Right Pedal (Dorsalis Pedis) Palpation] Respiratory Rate 16 Blood Pressure Pulse Oximetry 99 Oxygen Delivery Room Air Oxygen Flow Rate 01/27/24 03:50 01/27/24 04:00 01/27/24 04:00 Temperature 98.2 F Pulse Rate 76 76 72 Pulse Rate [Right Pedal (Dorsalis Pedis) Palpation] Respiratory Rate 20 20 Blood Pressure 110/63 Pulse Oximetry 99 99 Oxygen Delivery Room Air Oxygen Flow Rate 01/27/24 06:00 01/27/24 07:57 01/27/24 08:00 Temperature 97.9 F Pulse Rate 76 78 72 Pulse Rate [Right Pedal (Dorsalis Pedis) Palpation] Respiratory Rate 20 Blood Pressure 127/78 Pulse Oximetry 99 Oxygen Delivery Oxygen Flow Rate Intake/Output Intake/Output: Intake & Output 01/24/24 01/25/24 01/26/24 01/27/24 23:59 23:59 23:59 23:59 Intake Total 1494.3 1266.7 590.0 Output Total 1300 3400 750 Balance 194.3 -2133.3 -160.0 Meds/Results Medications: Active Medications Generic Name Dose Route Start Last Admin Trade Name Frejulieth PRN Reason Stop Dose Admin Acetaminophen 1,000 mg 01/25/24 05:30 Acetaminophen 500 Mg Tablet PO Q6H PRN Mild Pain (1-3) or Fever Amlodipine Besylate 5 mg 01/25/24 09:00 01/27/24 07:58 Amlodipine Besylate 5 Mg Tablet PO 5 mg DAILY JASWANT Administration Apixaban 5 mg 01/25/24 09:00 Apixaban 5 Mg Tablet PO Q12HR JASWANT Aspirin 81 mg 01/26/24 09:00 01/27/24 07:58 Aspirin 81 Mg Enteric Tablet PO 81 mg QAM JASWANT Administration Bisacodyl 10 mg 01/25/24 05:23 Bisacodyl 10 Mg Suppository RECTAL DAILY PRN Constipation Bumetanide 2 mg 01/25/24 09:00 01/27/24 07:58 Bumetanide 1 Mg Tablet PO 2 mg BID JASWANT Administration Ceftriaxone Sodium 2 gm 01/25/24 09:00 01/27/24 07:59 Ceftriaxone 2 Gm/Ns 100 Ml Bag IVPB 02/24/24 08:59 2 gm DAILY JASWANT Administration Dextrose 12.5 gm 01/25/24 08:38 Dextrose 50% 25 Gm/50 Ml Syringe IV PUSH PRN PRN Hypoglycemia Protocol Empagliflozin 25 mg 01/25/24 09:00 01/27/24 07:57 Empagliflozin 25 Mg Tablet PO 02/24/24 08:59 25 mg DAILY JASWANT Administration Ferrous Sulfate 325 mg 01/25/24 09:00 01/27/24 07:58 Ferrous Sulfate [address] PO 02/24/24 08:59 325 mg DAILY JASWANT Administration Glucagon 1 mg 01/25/24 08:38 Glucagon For Inj 1 Mg Vial IM PRN PRN Hypoglycemia Protocol Glucose 15 gm 01/25/24 08:38 Glucose Oral Gel 15 Gm Of Glucse In 37.5 Gm Tube PO PRN PRN Hypoglycemia Protocol Heparin Sodium (Porcine) 4,000 units 01/25/24 06:25 01/25/24 14:50 Heparin Sodium 5,000 Units/Ml Vial IV PUSH 4,000 units PRN PRN Administration aPTT less than 55 seconds Heparin Sodium (Porcine) 3,500 units 01/25/24 06:25 01/26/24 04:37 Heparin Sodium 5,000 Units/Ml Vial IV PUSH 3,500 units PRN PRN Administration aPTT 55 - 70 seconds Heparin Sodium/Dextrose 25,000 units in 250 mls @ 16 mls/hr 01/25/24 06:25 01/27/24 06:14 Heparin Sodium/D5w 100 Units/Ml IV CONT 1,600 units/hr .[id number] JASWANT 16 mls/hr Administration Protocol 1,600 UNITS/HR Dextrose 1,000 mls @ 100 mls/hr 01/25/24 08:38 Dextrose 5% 1,000 Ml IVPB PRN PRN Hypoglycemia Protocol Albumin Human 50 mls @ 999 mls/hr 01/26/24 07:10 Albutein IVPB 02/25/24 07:09 Q10M PRN HYPOTENSION Insulin Aspart 3 - 6 units 01/25/24 08:40 01/27/24 07:56 Insulin Aspart (*Bkc) 100 Units/Ml SUB-Q 5 units TIDWM JASWANT Administration Protocol Insulin Glargine 20 units 01/25/24 09:00 01/27/24 07:56 Insulin Glargine (*Bkc) 100 Units/Ml SUB-Q 02/24/24 08:59 20 units DAILY JASWANT Administration Metoprolol Tartrate 100 mg 01/25/24 21:00 01/27/24 07:57 Metoprolol Tartrate 50 Mg Tab PO 100 mg Q12HR JASWANT Administration Morphine Sulfate 2 mg 01/25/24 01:53 Morphine Sulfate (*Crx) 2 Mg/Ml Inj IV PUSH Q2H PRN Pain Rated 7-10 Nitroglycerin 0.4 mg 01/25/24 12:44 Nitroglycerin Sl 0.4 Mg Tablet SUBLINGUAL Q5MIN PRN Chest Pain Olanzapine 5 mg 01/25/24 05:23 Olanzapine 5 Mg Tablet PO Q6H PRN Anxiety Ondansetron HCl 4 mg 01/25/24 01:53 Ondansetron Inj 4 Mg/2 Ml Vial IV PUSH Q4H PRN Nausea Pantoprazole Sodium 40 mg 01/25/24 09:00 01/27/24 07:58 Pantoprazole 40 Mg Tablet PO 40 mg QAM JASWANT Administration Polyethylene Glycol 17 gm 01/25/24 05:23 Polyethylene Glycol 3350 17 Gm Powd.Pack PO DAILY PRN Constipation Rosuvastatin Calcium 40 mg 01/25/24 09:00 01/27/24 07:57 Rosuvastatin 20 Mg Tablet PO 40 mg DAILY JASWANT Administration Sacubitril/Valsartan 1 tab 01/25/24 09:00 01/27/24 07:58 Sacubitril/Valsartan 24-26 Mg Tablet PO 1 tab Q12HR JASWANT Administration Sevelamer Carbonate 1,600 mg 01/25/24 08:00 01/27/24 07:57 Sevelamer Carbonate 800 Mg Tablet PO 1,600 mg TIDWM JASWANT Administration Sodium Chloride 10 ml 01/26/24 14:00 01/27/24 06:33 Saline Lock Flush IV PUSH 10 ml Q8HR JASWANT Administration Sodium Chloride 10 ml 01/26/24 06:34 Saline Lock Flush IV PUSH PRN PRN Flush Sodium Chloride 20 ml 01/26/24 06:34 Saline Lock Flush IV PUSH PRN PRN after blood draws Sodium Polystyrene Sulfonate 15 gm 01/25/24 09:00 01/27/24 07:57 Sodium Polystyrene Sulfononate 15 Gm/60 Ml Btl PO 15 gm DAILY JASWANT Administration Tamsulosin HCl 0.4 mg 01/25/24 21:00 01/26/24 20:13 Tamsulosin Hcl 0.4 Mg Capsule PO 0.4 mg HS JASWANT Administration Radiology Results: ITS Impressions Chest X-Ray 01/24/24 21:45 IMPRESSION: Mild pulmonary vascular congestion with small bilateral pleural effusions, as detailed above. Labs Labs: Laboratory Results - last 24 hr 01/26/24 01/26/24 01/26/24 12:50 14:34 17:33 WBC RBC Hgb Hct MCV MCH MCHC RDW Plt Count MPV APTT 36.5 Sodium Potassium Chloride Carbon Dioxide Anion Gap BUN Creatinine Estim Creat Clear Calc Estimated GFR Glucose POC Capillary Glucose 192 H 139 H Calcium Total Bilirubin AST ALT Alkaline Phosphatase Total Protein Albumin 01/26/24 01/26/24 01/27/24 19:09 20:41 02:13 WBC RBC Hgb Hct MCV MCH MCHC RDW Plt Count MPV APTT 38.5 H 83.0 H Sodium Potassium Chloride Carbon Dioxide Anion Gap BUN Creatinine Estim Creat Clear Calc Estimated GFR Glucose POC Capillary Glucose 232 H Calcium Total Bilirubin AST ALT Alkaline Phosphatase Total Protein Albumin 01/27/24 01/27/24 07:24 08:44 WBC 6.3 RBC 2.67 L Hgb 7.5 L Hct 24.6 L MCV 92.1 MCH 28.1 MCHC 30.5 L RDW 15.8 H Plt Count 164 MPV 9.3 APTT 65.4 H Sodium 136 L Potassium 4.4 Chloride 101 Carbon Dioxide 30 Anion Gap 5 BUN 17 Creatinine 3.60 H Estim Creat Clear Calc 26 Estimated GFR 17 L Glucose 370 H POC Capillary Glucose 339 H Calcium 8.4 Total Bilirubin 0.3 AST 18 ALT 10 Alkaline Phosphatase 81 Total Protein 6.0 L Albumin 2.9 L Hospitalist MIPS Advance Care Plan I have confirmed that the patient's Advanced Care Plan is present, code status is documented, or surrogate decision maker is listed in patient medical record.: Yes Medication Reconciliation I have utilized all available resources to obtain, update and review the patients current medications (includes all prescriptions, OTC, herbals, cannabis, and nutritional supplements).: Yes
--- NOTE | 2024-01-27 09:58 | PM.TDS ---
Transfer Discharge Sum: Prov Provider Date of admission: 01/26/24 09:27 Primary care physician: PHYSICIAN NOT ON STAFF Admitting clinician: Casey Turcios MD Consults: 01/25/24 Consult to Physician Routine Comment: Spoke with Samira Kerns and notified her of consult Consulting Provider: Phani Méndez senior research engineer/MD group to consult: Cardiology Reason for consultation: chest pain/elevated trop Has provider been notified: Yes Consult to Physician Routine Comment: Spoke with and notified him of consult Consulting Provider: Elio Bingham senior research engineer/MD group to consult: nephrology Reason for consultation: dialysis Has provider been notified: Yes DS: Admitting Diagnosis Discharge Date 01/27/2024 Admitting Diagnosis Chest pain DS: Discharge Diagnosis Discharge Diagnosis (1) Chest pain: Qualifiers: Chest pain type: unspecified Qualified Code(s): R07.9 - Chest pain, unspecified Code(s): R07.9 - Chest pain, unspecified Status: Acute Assessment and Plan: Admit to IMU EKG with atrial fibrillation Cardiology consult Elevated troponins (2) Atrial fibrillation with RVR: Code(s): I48.91 - Unspecified atrial fibrillation Status: Acute Assessment and Plan: Rate controlled and anticoagulated (3) Chronic kidney disease (CKD) stage G5/A1, glomerular filtration rate (GFR) less than or equal to 15 mL/min/1.73 square meter and albuminuria creatinine ratio less than 30 mg/g: Code(s): N18.5 - Chronic kidney disease, stage 5 Status: Acute Assessment and Plan: Currently on dialysis Nephrology consult (4) Amputation of left foot: Code(s): S98.912A - Complete traumatic amputation of left foot, level unspecified, initial encounter Status: Acute Assessment and Plan: Local care (5) Insulin dependent diabetes mellitus: Status: Chronic Assessment and Plan: Continue insulin Holding metformin Holding glipizide (6) Peripheral autonomic neuropathy due to diabetes mellitus: Code(s): E11.43 - Type 2 diabetes mellitus with diabetic autonomic (poly)neuropathy Status: Acute Assessment and Plan: Status post left foot amputation (7) Coronary artery disease: Code(s): I25.10 - Atherosclerotic heart disease of [place] coronary artery without angina pectoris Status: Acute Assessment and Plan: Continue Entresto Plan Refer to hospital course for brief course of hospitalization Non ST elevation [place] -underwent CATH. Multivessel disease -transfer to [facility] -Last Eliquis 01/24? -Rosuvastatin 40 mg, and add aspirin 81 mg to his regimen -Cardiology switched his Lopressor 100 mg daily to b.i.d. and recommend weaning him off diltiazem drip -continue heparin drip and give sublingual nitro if needed -Echocardiogram Left ventricular systolic function is mildly reduced, estimated at 45-50%. -Denies any illicit drug use -Reviewed EKG and CXR STAGE 5 CKD -dialysis PAD status post left foot amputation -reportedly had balloon angioplasty of left leg vessels -he will need surveillance SUSANA and ultrasound Doppler at some point this month Paroxysmal atrial fibrillation -continue holding Eliquis -heparin drip -Lopressor 100 mg b.i.d. -wean off diltiazem Hypertension -blood pressure at goal of less than 140 -continue amlodipine 5 mg p.o. daily Transfer Discharge Sum: Med Medications Active and Home Medications: Home Medications acetaminophen 325 mg chewable tablet 325 mg PO Q4H PRN Pain (Scale Score 1-3) 01/25/24 [History Confirmed 01/25/24] amlodipine 5 mg tablet 5 mg PO DAILY 01/25/24 [History Confirmed 01/25/24] apixaban 5 mg tablet (Eliquis) 5 mg PO BID 01/25/24 [History Confirmed 01/25/24] ascorbate calcium (vitamin C) 500 mg tablet 500 mg PO HS 01/25/24 [History Confirmed 01/25/24] bisacodyl 10 mg rectal suppository 10 mg RECTAL DAILY PRN Constipation 01/25/24 [History Confirmed 01/25/24] bumetanide 2 mg tablet 2 mg PO BID 01/25/24 [History Confirmed 01/25/24] ceftriaxone 2 gram intravenous solution 2 g IV DAILY 01/25/24 [History Confirmed 01/25/24] dapagliflozin propanediol 10 mg tablet (Farxiga) 10 mg PO DAILY 01/25/24 [History Confirmed 01/25/24] ferrous sulfate 325 mg (65 mg iron) capsule,extended release 325 mg PO DAILY 01/25/24 [History Confirmed 01/25/24] glipizide 10 mg tablet 10 mg PO BID 01/25/24 [History Confirmed 01/25/24] insulin degludec 100 unit/mL (3 mL) subcutaneous pen (Tresiba FlexTouch U-100 insulin) 20 unit subcut DAILY 01/25/24 [History Confirmed 01/25/24] metformin 500 mg tablet 500 mg PO BID 01/25/24 [History Confirmed 01/25/24] metoprolol tartrate 100 mg tablet 100 mg PO DAILY 01/25/24 [History Confirmed 01/25/24] olanzapine 5 mg tablet 5 mg PO Q6H PRN Anxiety 01/25/24 [History Confirmed 01/25/24] pantoprazole 40 mg tablet,delayed release 40 mg PO QAM 01/25/24 [History Confirmed 01/25/24] polyethylene glycol 3350 17 gram oral powder packet (Miralax) 17 g PO DAILY PRN Constipation 01/25/24 [History Confirmed 01/25/24] rosuvastatin 40 mg tablet 40 mg PO DAILY 01/25/24 [History Confirmed 01/25/24] sacubitril 24 mg-valsartan 26 mg tablet (Entresto) 1 tablet PO BID 01/25/24 [History Confirmed 01/25/24] sevelamer carbonate 800 mg tablet 1,600 mg PO TIDWM 01/25/24 [History Confirmed 01/25/24] sodium polystyrene sulfonate 15 gram-sorbitol 20 gram/60 mL oral susp (SPS (with sorbitol)) 60 ml PO DAILY 01/25/24 [History Confirmed 01/25/24] tamsulosin 0.4 mg capsule 0.4 mg PO HS 01/25/24 [History Confirmed 01/25/24] Active Medications Acetaminophen (Acetaminophen 500 Mg Tablet) 1,000 mg PO Q6H PRN PRN Reason: Mild Pain (1-3) or Fever Amlodipine Besylate (Amlodipine Besylate 5 Mg Tablet) 5 mg PO DAILY [facility] Last Admin: 01/27/24 07:58 Dose: 5 mg Apixaban (Apixaban 5 Mg Tablet) 5 mg PO Q12HR [facility] Aspirin (Aspirin 81 Mg Enteric Tablet) 81 mg PO QAM [facility] Last Admin: 01/27/24 07:58 Dose: 81 mg Bisacodyl (Bisacodyl 10 Mg Suppository) 10 mg RECTAL DAILY PRN PRN Reason: Constipation Bumetanide (Bumetanide 1 Mg Tablet) 2 mg PO BID [facility] Last Admin: 01/27/24 07:58 Dose: 2 mg Ceftriaxone Sodium (Ceftriaxone 2 Gm/Ns 100 Ml Bag) 2 gm IVPB DAILY [facility] Stop: 02/24/24 08:59 Last Admin: 01/27/24 07:59 Dose: 2 gm Dextrose (Dextrose 50% 25 Gm/50 Ml Syringe) 12.5 gm IV PUSH PRN PRN; Protocol PRN Reason: Hypoglycemia Empagliflozin (Empagliflozin 25 Mg Tablet) 25 mg PO DAILY [facility] Stop: 02/24/24 08:59 Last Admin: 01/27/24 07:57 Dose: 25 mg Ferrous Sulfate (Ferrous Sulfate [address]) 325 mg PO DAILY [facility] Stop: 02/24/24 08:59 Last Admin: 01/27/24 07:58 Dose: 325 mg Glucagon (Glucagon For Inj 1 Mg Vial) 1 mg IM PRN PRN; Protocol PRN Reason: Hypoglycemia Glucose (Glucose Oral Gel 15 Gm Of Glucse In 37.5 Gm Tube) 15 gm PO PRN PRN; Protocol PRN Reason: Hypoglycemia Heparin Sodium (Porcine) (Heparin Sodium 5,000 Units/Ml Vial) 4,000 units IV PUSH PRN PRN PRN Reason: aPTT less than 55 seconds Last Admin: 01/25/24 14:50 Dose: 4,000 units Heparin Sodium (Porcine) (Heparin Sodium 5,000 Units/Ml Vial) 3,500 units IV PUSH PRN PRN PRN Reason: aPTT 55 - 70 seconds Last Admin: 01/26/24 04:37 Dose: 3,500 units Heparin Sodium/Dextrose (Heparin Sodium/D5w 100 Units/Ml) 25,000 units in 250 mls @ 16 mls/hr IV CONT .[id number] [facility]; Protocol Last Admin: 01/27/24 06:14 Dose: 1,600 units/hr, 16 mls/hr Dextrose (Dextrose 5% 1,000 Ml) 1,000 mls @ 100 mls/hr IVPB PRN PRN; Protocol PRN Reason: Hypoglycemia Albumin Human (Albutein) 50 mls @ 999 mls/hr IVPB Q10M PRN PRN Reason: HYPOTENSION Stop: 02/25/24 07:09 Insulin Aspart (Insulin Aspart (*Bkc) 100 Units/Ml) 3 - 6 units SUB-Q TIDWM [facility]; Protocol Last Admin: 01/27/24 07:56 Dose: 5 units Insulin Glargine (Insulin Glargine (*Bkc) 100 Units/Ml) 20 units SUB-Q DAILY [facility] Stop: 02/24/24 08:59 Last Admin: 01/27/24 07:56 Dose: 20 units Metoprolol Tartrate (Metoprolol Tartrate 50 Mg Tab) 100 mg PO Q12HR [facility] Last Admin: 01/27/24 07:57 Dose: 100 mg Morphine Sulfate (Morphine Sulfate (*Crx) 2 Mg/Ml Inj) 2 mg IV PUSH Q2H PRN PRN Reason: Pain Rated 7-10 Nitroglycerin (Nitroglycerin Sl 0.4 Mg Tablet) 0.4 mg SUBLINGUAL Q5MIN PRN PRN Reason: Chest Pain Olanzapine (Olanzapine 5 Mg Tablet) 5 mg PO Q6H PRN PRN Reason: Anxiety Ondansetron HCl (Ondansetron Inj 4 Mg/2 Ml Vial) 4 mg IV PUSH Q4H PRN PRN Reason: Nausea Pantoprazole Sodium (Pantoprazole 40 Mg Tablet) 40 mg PO QAM [facility] Last Admin: 01/27/24 07:58 Dose: 40 mg Polyethylene Glycol (Polyethylene Glycol 3350 17 Gm Powd.Pack) 17 gm PO DAILY PRN PRN Reason: Constipation Rosuvastatin Calcium (Rosuvastatin 20 Mg Tablet) 40 mg PO DAILY [facility] Last Admin: 01/27/24 07:57 Dose: 40 mg Sacubitril/Valsartan (Sacubitril/Valsartan 24-26 Mg Tablet) 1 tab PO Q12HR [facility] Last Admin: 01/27/24 07:58 Dose: 1 tab Sevelamer Carbonate (Sevelamer Carbonate 800 Mg Tablet) 1,600 mg PO TIDWM [facility] Last Admin: 01/27/24 07:57 Dose: 1,600 mg Sodium Chloride (Saline Lock Flush) 10 ml IV PUSH Q8HR [facility] Last Admin: 01/27/24 06:33 Dose: 10 ml Sodium Chloride (Saline Lock Flush) 10 ml IV PUSH PRN PRN PRN Reason: Flush Sodium Chloride (Saline Lock Flush) 20 ml IV PUSH PRN PRN PRN Reason: after blood draws Sodium Polystyrene Sulfonate (Sodium Polystyrene Sulfononate 15 Gm/60 Ml Btl) 15 gm PO DAILY [facility] Last Admin: 01/27/24 07:57 Dose: 15 gm Tamsulosin HCl (Tamsulosin Hcl 0.4 Mg Capsule) 0.4 mg PO [facility] Last Admin: 01/26/24 20:13 Dose: 0.4 mg Transfer Discharge Sum: Hosp Hospital Course Hospital course: Jeancarlos Varghese is a 59 year old male with past medical history significant for type 2 diabetes mellitus, atrial fibrillation, left foot amputation, chronic kidney disease currently on hemodialysis. Patient presents from local shelter due to chest pain at the time of my visit patient denies any pain. Patient recently discharged from [facility] after undergoing amputation he was started on dialysis while on that admission. Cardiology was consulted due to the elevation of troponin. He reports yesterday he was in the dialysis center and started developing chest pain. Also he reports having 3 stents in the last one was placed 6 years ago in our [facility] in [facility]. As mentioned above ,patient was recently in [facility] this December for left leg amputation and started on dialysis due to CKD stage 5. On 01/25 he underwent Cardiac cath. Please review the full report. LHC shows multivessel CAD. Cardiology recommended transfer to tertiary center for evaluation for CABG. He was accepted at [facility] and will be transferred today 01/26. He underwent dialysis yesterday without any incident. Time Spent with Patient Time attestation: Total time spent providing and/or coordinating transfer services: 45 minute Exam Narrative: Laying in a stretcher Const: General: comfortable, no acute distress, well developed, alert, awake and average body habitus Nutritional Appearance: average body habitus Orientation/consciousness: patient oriented x3 HENMT: Head: normal to inspection, normocephalic and atraumatic Ears: hearing grossly normal bilaterally Face/Nose/Sinus: normal facial exam Face and sinus: normal facial exam Eyes: General: appearance normal, both eyes and all related structures Pupils: Equal, round and reactive pupils present EOM: EOMs intact bilaterally Neck: Neck: full ROM, no lymphadenopathy and no JVD Thyroid: thyroid normal Lymphatic: no lymphadenopathy noted Chest: Other: Right subclavian dialysis catheter Resp: Effort & Inspection: normal respiratory effort and able to speak in complete sentences Auscultation: clear to auscultation bilaterally Cardio: Jugular venous distension: no JVD Rate: regular rate Rhythm: regular rhythm Heart sounds: S1 normal heart sound present and S2 normal heart sound present : General: Yes deferred Skin: General skin exam: amputation site Rashes: no rashes Wounds: amputation site left foot without odor Neuro: General: patient oriented x3, CN's II-XI intact bilaterally and Unable to assess gait Cranial nerves: Yes CN's II-XII intact bilaterally and Yes Equal, round and reactive pupils present Cognition (Neuro): normal cognition Speech: normal speech Gait exam (Neuro): Unable to assess gait Motor exam (neuro): 5/5 motor strength present throughout Extrem: General: normal to inspection, full ROM, no joint enlargement and no pedal edema Left lower extremity: foot Details: other (Amputation) DS: Data Data Completed and Pending Labs on day of discharge: Labs from last 24 hours 01/27/24 01/27/24 01/27/24 08:44 07:24 02:13 WBC 6.3 RBC 2.67 L Hgb 7.5 L Hct 24.6 L MCV 92.1 MCH 28.1 MCHC 30.5 L RDW 15.8 H Plt Count 164 MPV 9.3 APTT 65.4 H 83.0 H Sodium 136 L Potassium 4.4 Chloride 101 Carbon Dioxide 30 Anion Gap 5 BUN 17 Creatinine 3.60 H Estim Creat Clear Calc 26 Estimated GFR 17 L Glucose 370 H POC Capillary Glucose 339 H Calcium 8.4 Total Bilirubin 0.3 AST 18 ALT 10 Alkaline Phosphatase 81 Total Protein 6.0 L Albumin 2.9 L 01/26/24 01/26/24 01/26/24 20:41 19:09 17:33 WBC RBC Hgb Hct MCV MCH MCHC RDW Plt Count MPV APTT 38.5 H Sodium Potassium Chloride Carbon Dioxide Anion Gap BUN Creatinine Estim Creat Clear Calc Estimated GFR Glucose POC Capillary Glucose 232 H 139 H Calcium Total Bilirubin AST ALT Alkaline Phosphatase Total Protein Albumin 01/26/24 01/26/24 14:34 12:50 WBC RBC Hgb Hct MCV MCH MCHC RDW Plt Count MPV APTT 36.5 Sodium Potassium Chloride Carbon Dioxide Anion Gap BUN Creatinine Estim Creat Clear Calc Estimated GFR Glucose POC Capillary Glucose 192 H Calcium Total Bilirubin AST ALT Alkaline Phosphatase Total Protein Albumin Preliminary micro results at discharge 01/25/24 07:11 Blood Culture - Preliminary Blood 01/25/24 06:38 Blood Culture - Preliminary Blood Imaging Radiologist's impression: ITS Impressions Chest X-Ray 01/24/24 21:45 IMPRESSION: Mild pulmonary vascular congestion with small bilateral pleural effusions, as detailed above.
--- NOTE | 2024-01-27 10:01 | P.DS_ITS ---
DS: Admitting Diagnosis Discharge Date 01/27/2024 Admitting Diagnosis Chest pain DS: Discharge Diagnosis Discharge Diagnosis (1) Chest pain: Qualifiers: Chest pain type: unspecified Qualified Code(s): R07.9 - Chest pain, unspecified Code(s): R07.9 - Chest pain, unspecified Status: Acute Assessment and Plan: Admit to IMU EKG with atrial fibrillation Cardiology consult Elevated troponins (2) Atrial fibrillation with RVR: Code(s): I48.91 - Unspecified atrial fibrillation Status: Acute Assessment and Plan: Rate controlled and anticoagulated (3) Chronic kidney disease (CKD) stage G5/A1, glomerular filtration rate (GFR) less than or equal to 15 mL/min/1.73 square meter and albuminuria creatinine ratio less than 30 mg/g: Code(s): N18.5 - Chronic kidney disease, stage 5 Status: Acute Assessment and Plan: Currently on dialysis Nephrology consult (4) Amputation of left foot: Code(s): S98.912A - Complete traumatic amputation of left foot, level unspecified, initial encounter Status: Acute Assessment and Plan: Local care (5) Insulin dependent diabetes mellitus: Status: Chronic Assessment and Plan: Continue insulin Holding metformin Holding glipizide (6) Peripheral autonomic neuropathy due to diabetes mellitus: Code(s): E11.43 - Type 2 diabetes mellitus with diabetic autonomic (poly)neuropathy Status: Acute Assessment and Plan: Status post left foot amputation (7) Coronary artery disease: Code(s): I25.10 - Atherosclerotic heart disease of [place] coronary artery without angina pectoris Status: Acute Assessment and Plan: Continue Entresto Plan Refer to hospital course for brief course of hospitalization Non ST elevation VT -underwent CATH. Multivessel disease -transfer to [facility] Eliquis 01/24? -Rosuvastatin 40 mg, and add aspirin 81 mg to his regimen -Cardiology switched his Lopressor 100 mg daily to b.i.d. and recommend weaning him off diltiazem drip -continue heparin drip and give sublingual nitro if needed -Echocardiogram Left ventricular systolic function is mildly reduced, estimated at 45-50%. -Denies any illicit drug use -Reviewed EKG and CXR STAGE 5 CKD -dialysis PAD status post left foot amputation -reportedly had balloon angioplasty of left leg vessels -he will need surveillance SUSANA and ultrasound Doppler at some point this month Paroxysmal atrial fibrillation -continue holding Eliquis -heparin drip -Lopressor 100 mg b.i.d. -wean off diltiazem Hypertension -blood pressure at goal of less than 140 -continue amlodipine 5 mg p.o. daily DS: Summary Hospital Course Hospital Course: Jeancarlos Varghese is a 59 year old male with past medical history significant for type 2 diabetes mellitus, atrial fibrillation, left foot amputation, chronic kidney disease currently on hemodialysis. Patient presents from local alf due to chest pain at the time of my visit patient denies any pain. Patient recently discharged from [facility] after undergoing amputation he was started on dialysis while on that admission. Cardiology was consulted due to the elevation of troponin. He reports yesterday he was in the dialysis center and started developing chest pain. Also he reports having 3 stents in the last one was placed 6 years ago in our [facility] in [facility]. As mentioned above ,patient was recently in [facility] this December for left leg amputation and started on dialysis due to CKD stage 5. On 01/25 he underwent Cardiac cath. Please review the full report. LHC shows multivessel CAD. Cardiology recommended transfer to tertiary center for evaluation for CABG. [facility] and will be [facility] today 01/26. He underwent dialysis yesterday without any incident. Time Spent with Patient Time attestation: Total time spent providing and/or coordinating discharge services: 45 minutes Exam Narrative: Laying in a stretcher Const: General: comfortable, no acute distress, well developed, alert, awake and average body habitus Nutritional Appearance: average body habitus Orientation/consciousness: patient oriented x3 HENMT: Head: normal to inspection, normocephalic and atraumatic Ears: hearing grossly normal bilaterally Face/Nose/Sinus: normal facial exam Face and sinus: normal facial exam Eyes: General: appearance normal, both eyes and all related structures Pupils: Equal, round and reactive pupils present EOM: EOMs intact bilaterally Neck: Neck: full ROM, no lymphadenopathy and no JVD Thyroid: thyroid normal Lymphatic: no lymphadenopathy noted Chest: Other: Right subclavian dialysis catheter Resp: Effort & Inspection: normal respiratory effort and able to speak in complete sentences Auscultation: clear to auscultation bilaterally Cardio: Jugular venous distension: no JVD Rate: regular rate Rhythm: regular rhythm Heart sounds: S1 normal heart sound present and S2 normal heart sound present : General: Yes deferred Skin: General skin exam: amputation site Rashes: no rashes Wounds: amputation site left foot without odor Neuro: General: patient oriented x3, CN's II-XI intact bilaterally and Unable to assess gait Cranial nerves: Yes CN's II-XII intact bilaterally and Yes Equal, round and reactive pupils present Cognition (Neuro): normal cognition Speech: normal speech Gait exam (Neuro): Unable to assess gait Motor exam (neuro): 5/5 motor strength present throughout Extrem: General: normal to inspection, full ROM, no joint enlargement and no pedal edema Left lower extremity: foot Details: other (Amputation) DS: Data Data Completed and Pending Labs on day of discharge: Labs from last 24 hours 01/27/24 01/27/24 01/27/24 08:44 07:24 02:13 WBC 6.3 RBC 2.67 L Hgb 7.5 L Hct 24.6 L MCV 92.1 MCH 28.1 MCHC 30.5 L RDW 15.8 H Plt Count 164 MPV 9.3 APTT 65.4 H 83.0 H Sodium 136 L Potassium 4.4 Chloride 101 Carbon Dioxide 30 Anion Gap 5 BUN 17 Creatinine 3.60 H Estim Creat Clear Calc 26 Estimated GFR 17 L Glucose 370 H POC Capillary Glucose 339 H Calcium 8.4 Total Bilirubin 0.3 AST 18 ALT 10 Alkaline Phosphatase 81 Total Protein 6.0 L Albumin 2.9 L 01/26/24 01/26/24 01/26/24 20:41 19:09 17:33 WBC RBC Hgb Hct MCV MCH MCHC RDW Plt Count MPV APTT 38.5 H Sodium Potassium Chloride Carbon Dioxide Anion Gap BUN Creatinine Estim Creat Clear Calc Estimated GFR Glucose POC Capillary Glucose 232 H 139 H Calcium Total Bilirubin AST ALT Alkaline Phosphatase Total Protein Albumin 01/26/24 01/26/24 14:34 12:50 WBC RBC Hgb Hct MCV MCH MCHC RDW Plt Count MPV APTT 36.5 Sodium Potassium Chloride Carbon Dioxide Anion Gap BUN Creatinine Estim Creat Clear Calc Estimated GFR Glucose POC Capillary Glucose 192 H Calcium Total Bilirubin AST ALT Alkaline Phosphatase Total Protein Albumin Preliminary micro results at discharge 01/25/24 07:11 Blood Culture - Preliminary Blood 01/25/24 06:38 Blood Culture - Preliminary Blood Imaging Radiologist's impression: ITS Impressions Chest X-Ray 01/24/24 21:45 IMPRESSION: Mild pulmonary vascular congestion with small bilateral pleural effusions, as detailed above. Discharge Plan Discharge Attending physician on discharge: Chauncey Avina Consulting providers: Phani Méndez; Elio Bingham Discharging Clinician: Chauncey Avina Anticipated Discharge Date/Time: 01/27/24 14:58 Patient Disposition: Acute Care Hospital Discharge Instructions: Chest Pain Patient Instructions: Apixaban (By mouth), Chest Pain (GEN) Discharge Medications: Held bumetanide 2 mg Tablet 2 mg PO BID Hold Instructions: Resume on 02/15/24. Patient transferred to [facility].Needs medical reconciliation nees to be done there. ceftriaxone 2 gram Recon Soln 2 g IV DAILY Hold Instructions: Resume on 02/15/24. Patient transferred to [facility].Needs medical reconciliation nees to be done there. glipizide 10 mg tablet 10 mg PO BID Hold Instructions: Resume on 02/15/24. Patient transferred to [facility].Needs medical reconciliation nees to be done there. amlodipine 5 mg Tablet 5 mg PO DAILY Hold Instructions: Resume on 02/15/24. Patient transferred to [facility].Needs medical reconciliation nees to be done there. bisacodyl 10 mg Suppository 10 mg RECTAL DAILY PRN (Reason: Constipation) Hold Instructions: Resume on 02/15/24. Patient transferred to [facility].Needs medical reconciliation nees to be done there. ascorbate calcium (vitamin C) 500 mg Tablet 500 mg PO HS Hold Instructions: Resume on 02/15/24. Patient transferred to [facility].Needs medical reconciliation nees to be done there. ferrous sulfate 325 mg (65 mg iron) Capsule, Extended Release 325 mg PO DAILY Hold Instructions: Resume on 02/15/24. Patient transferred to [facility].Needs medical reconciliation nees to be done there. Rx Instructions: Takes in Afternoon Eliquis 5 mg tablet 5 mg PO BID Hold Instructions: Resume on 02/15/24. Patient transferred to [facility].Needs medical reconciliation nees to be done there. dapagliflozin propanediol [Farxiga] 10 mg Tablet 10 mg PO DAILY Hold Instructions: Resume on 02/15/24. Patient transferred to [facility].Needs medical reconciliation nees to be done there. Entresto 24-26 mg tablet 1 tablet PO BID Hold Instructions: Resume on 02/15/24. Patient transferred to [facility].Needs medical reconciliation nees to be done there. acetaminophen 325 mg Tablet,Chewable 325 mg PO Q4H PRN (Reason: Pain (Scale Score 1-3)) Hold Instructions: Resume on 02/16/24. Patient transferred to [facility].Needs medical reconciliation nees to be done there. metformin 500 mg Tablet 500 mg PO BID Hold Instructions: Resume on 02/15/24. Patient transferred to [facility].Needs medical reconciliation nees to be done there. polyethylene glycol 3350 [Miralax] 17 gram Powder In Packet 17 g PO DAILY PRN (Reason: Constipation) Hold Instructions: Resume on 02/15/24. Patient transferred to [facility].Needs medical reconciliation nees to be done there. metoprolol tartrate 100 mg Tablet 100 mg PO DAILY Hold Instructions: Resume on 02/15/24. Patient transferred to [facility].Needs medical reconciliation nees to be done there. olanzapine 5 mg Tablet 5 mg PO Q6H PRN (Reason: Anxiety) Hold Instructions: Resume on 02/15/24. Patient transferred to [facility].Needs medical reconciliation nees to be done there. tamsulosin 0.4 mg Capsule 0.4 mg PO HS Hold Instructions: Resume on 02/15/24. Patient transferred to [facility].Needs medical reconciliation nees to be done there. pantoprazole 40 mg Tablet,Delayed Release (Dr/Ec) 40 mg PO QAM Hold Instructions: Resume on 02/15/24. Patient transferred to [facility].Needs medical reconciliation nees to be done there. rosuvastatin 40 mg tablet 40 mg PO DAILY Hold Instructions: Resume on 02/15/24. Patient transferred to [facility].Needs medical reconciliation nees to be done there. sevelamer carbonate 800 mg Tablet 1,600 mg PO TIDWM Hold Instructions: Resume on 02/15/24. Patient transferred to [facility].Needs medical reconciliation nees to be done there. Rx Instructions: must administer with a meal/food insulin degludec [Tresiba FlexTouch U-100] 100 unit/mL (3 mL) insulin pen 20 unit SUBCUT DAILY Hold Instructions: Resume on 02/15/24. Patient transferred to [facility].Needs medical reconciliation nees to be done there. SPS (with sorbitol) 15-20 gram/60 mL Suspension 60 ml PO DAILY Hold Instructions: Resume on 02/15/24. Patient transferred to [facility].Needs medical reconciliation nees to be done there. Date of admission: 01/26/24 09:27 Primary Care Provider: PHYSICIAN NOT ON STAFF,NONSTAFF Admitting Provider: Casey Turcios V. Attending physician on admission: Casey Turcios V. Condition: Stable
[2024-01-27] MEDS: HEPARIN SODIUM 5,000 UNITS/ML VIAL 3500 UNITS IV PUSH (10:26)
[2024-01-27] MEDS: HEPARIN SOD/D5W 100 UNITS/ML 25,000 UNITS/250 ML BAG 18 UNITS IV CONT (10:27)
--- NOTE | 2024-01-27 11:46 | PC.NURSE ---
Called [facility] [address]. Raphael transferred me to patient nurse Yoly Burks ( hard to hear). Updated Nurse on recent PTT, Heparin bolus, and rate change. Nurse stated she did get report from assistant shift supervisor nurse Suni. [facility] nurse did not have any questions regarding patient.
== END 2024-01-27 11:35 | disposition short-term general hospital (02) | DRG 280 ==
LOC: ANHED 01-25 03:14 → ANHIMU 01-25 05:08
PROVIDERS: Internal Medicine; Internal Medicine Nephrology; Admitting Provider Internal Medicine; Emergency Provider Family Medicine; Visit Provider General Practice
PROC: 4A023N7 Measurement of Cardiac Sampling and Pressure, Left Heart, Percutaneous Approach (ICD-10-PCS; CPT 93452; principal; 2024-01-26 10:00)
DX: I21.4 Non-ST elevation (NSTEMI) myocardial infarction (principal); N18.6 End stage renal disease; I13.2 Hypertensive heart and chronic kidney disease with heart failure and with stage 5 chronic kidney disease, or end stage renal disease; I25.10 Atherosclerotic heart disease of native coronary artery without angina pectoris; E11.43 Type 2 diabetes mellitus with diabetic autonomic (poly)neuropathy; E11.22 Type 2 diabetes mellitus with diabetic chronic kidney disease; E78.5 Hyperlipidemia, unspecified; D63.1 Anemia in chronic kidney disease; I73.9 Peripheral vascular disease, unspecified; I48.0 Paroxysmal atrial fibrillation; Z99.2 Dependence on renal dialysis; Z89.432 Acquired absence of left foot; Z79.01 Long term (current) use of anticoagulants; Z95.5 Presence of coronary angioplasty implant and graft; Z95.820 Peripheral vascular angioplasty status with implants and grafts
CPT/HCPCS: 36415; 71046; 80053; 82948; 83690; 84484; 85025; 85027; 85610; 85730; 86706; 87040; 87340; 93005; 93458; 96375; 99285; A9270; C1760; C1887; C1894; C8929; G0257; G0269; G0378; J0696; J1644; J1815; J2003; J2060; J2250; J3010; J7030; J7040; Q9957